=== PATIENT | female | born 1955 | race Caucasian/White ===

== ENCOUNTER 2016-06-19 15:00 | Emergency (ER) | payer MEDICAID ==
[~2016-06-19] VITALS: Ht 170.2 cm; Wt 72.6 kg
[2016-06-19 15:27] VITALS: BP_SYST 128
== END 2016-06-19 17:52 | disposition left against medical advice (07) ==
LOC: SED 15:00
DX: H92.02 Otalgia, left ear (principal); Z53.21 Procedure and treatment not carried out due to patient leaving prior to being seen by health care provider

== ENCOUNTER 2016-10-28 03:31 | Emergency (ER) | payer MEDICAID ==
[~2016-10-28] VITALS: Ht 170.2 cm; Wt 68.0 kg
[2016-10-28 03:31] VITALS: BP_SYST 151
[2016-10-28] MEDS ORDERED: NACL 0.9% 1,000 ML IV ONE (03:52)
[2016-10-28 04:24] LABS: HEMATOCRIT 45.2 % (36-48); HEMOGLOBIN 15.3 g/dL (12.0-16.0); MEAN CORPUSCULAR HEMOGLOBIN 30 pg (27-31); MEAN CORPUSCULAR HGB CONC 34 % (32-36); MEAN CORPUSCULAR VOLUME 89 fL (79.0-98.0); RED BLOOD CELL COUNT(AUTO) 5.07 MIL/uL (4.2-6.2); RED CELL DISTRIBUTION WIDTH 12.9 % (9.0-15.0)
[2016-10-28 04:25] LABS: BASOPHILS # (AUTO) 0.1 K/uL (0.0-0.2); BASOPHILS % (AUTO) 1.1 % (0.0-2.0); EOSINOPHILS # (AUTO) 0.1 K/uL (0.0-0.4); EOSINOPHILS % (AUTO) 2.3 % (0.0-4.0); LYMPHOCYTES # (AUTO) 1.5 K/uL (1.0-5.5); LYMPHOCYTES % (AUTO) 24.5 % (20.5-51.5); MONOCYTES # (AUTO) 0.8 K/uL (0.0-1.0); NEUTROPHILS # (AUTO) 3.5 K/uL (1.8-7.7); NEUTROPHILS % (AUTO) 59.1 % (40.0-70.0); PLATELET COUNT (AUTO) 157 K/uL (130-430)
[2016-10-28 04:41] LABS: CALCIUM 9.6 mg/dL (8.4-11.0); CREATININE 0.88 mg/dL (0.55-1.30); POTASSIUM 3.5 mmol/L (3.5-5.1)
[2016-10-28 04:48] LABS: ALBUMIN 4.3 g/dL (3.4-4.8); TOTAL BILIRUBIN 0.8 mg/dL (0.0-1.0)
[2016-10-28 05:58] LABS: BILIRUBIN,URINE NEGATIVE (NEGATIVE); BLOOD, URINE NEGATIVE (NEGATIVE); CLARITY/URINE CLEAR (CLEAR); COLOR,URINE YELLOW (YELLOW); GLUCOSE,URINE NEGATIVE (NEGATIVE); KETONES,URINE TRACE (NEGATIVE); LEUKOCYTE ESTERASE ,URINE NEGATIVE (NEGATIVE); NITRITE, URINE NEGATIVE (NEGATIVE); PH,URINE 5.5 (5.0-8.0); PROTEIN URINE NEGATIVE (NEGATIVE); UROBILINOGEN,URINE 0.2 (0.2-1.0)
[2016-10-28 08:08] VITALS: BP_SYST 160
== END 2016-10-28 07:35 | disposition home or self-care (01) ==
LOC: SED 03:31
DX: G62.9 Polyneuropathy, unspecified (principal); R51 Headache; Z88.6 Allergy status to analgesic agent; Z88.1 Allergy status to other antibiotic agents
CPT/HCPCS: 36415; 70450; 72131; 80053; 81003; 85025; 96360; 96361; 99285; J7030

== ENCOUNTER 2016-11-02 11:13 | Inpatient (IN) | payer MEDICAID ==
[~2016-11-02] VITALS: Ht 170.2 cm; Wt 73.9 kg
[2016-11-02] MEDS ORDERED: NACL 0.9% 1,000 ML IV ONE (11:15)
[2016-11-02 11:17] VITALS: BP_SYST 108
[2016-11-02 11:41] LABS: BASOPHILS # (AUTO) 0.2 K/uL (0.0-0.2); BASOPHILS % (AUTO) 3.6 % (0.0-2.0); EOSINOPHILS # (AUTO) 0.1 K/uL (0.0-0.4); EOSINOPHILS % (AUTO) 1.6 % (0.0-4.0); HEMATOCRIT 46.6 % (36-48); HEMOGLOBIN 15.3 g/dL (12.0-16.0); LYMPHOCYTES # (AUTO) 1.6 K/uL (1.0-5.5); LYMPHOCYTES % (AUTO) 25.3 % (20.5-51.5); MEAN CORPUSCULAR HEMOGLOBIN 30 pg (27-31); MEAN CORPUSCULAR HGB CONC 33 % (32-36); MEAN CORPUSCULAR VOLUME 91 fL (79.0-98.0); MONOCYTES # (AUTO) 0.7 K/uL (0.0-1.0); MONOCYTES % (AUTO) 11.6 % (1.7-9.3); NEUTROPHILS # (AUTO) 3.6 K/uL (1.8-7.7); NEUTROPHILS % (AUTO) 57.9 % (40.0-70.0); PLATELET COUNT (AUTO) 159 K/uL (130-430); RED BLOOD CELL COUNT(AUTO) 5.15 MIL/uL (4.2-6.2); RED CELL DISTRIBUTION WIDTH 12.6 % (9.0-15.0); WHITE BLOOD COUNT (AUTO) 6.2 K/uL (4.8-10.8)
[2016-11-02 11:50] LABS: ANION GAP 10 (5-15); CALCIUM 9.3 mg/dL (8.4-11.0); CHLORIDE 108 mmol/L (98-107); CREATININE 0.95 mg/dL (0.55-1.30); GFR AFRICAN AMERICAN 77 mL/min (>90); GLUCOSE 109 mg/dL (70-99); POTASSIUM 3.3 mmol/L (3.5-5.1); SODIUM SERUM 144 mmol/L (136-145); UREA NITROGEN, BLOOD 25 mg/dL (8-21)
[2016-11-02 12:06] LABS: TOTAL BILIRUBIN 0.5 mg/dL (0.0-1.0)
[2016-11-02 12:07] LABS: ALANINE AMINOTRANSFERASE 26 U/L (12-78); ALBUMIN 4.1 g/dL (3.4-4.8); ASPARTATE AMINOTRANSFERASE 17 U/L (10-37); THYROID STIMULATING HORMONE 0.89 uIu/mL (0.34-4.82)
[2016-11-02] MEDS ORDERED: POTASSIUM CHLORIDE 20 MEQ/PKT PACKET PO ONE (12:30)
[2016-11-02 13:11] LABS: BILIRUBIN,URINE NEGATIVE (NEGATIVE); BLOOD, URINE NEGATIVE (NEGATIVE); CLARITY/URINE CLEAR (CLEAR); COLOR,URINE YELLOW (YELLOW); GLUCOSE,URINE NEGATIVE (NEGATIVE); KETONES,URINE NEGATIVE (NEGATIVE); LEUKOCYTE ESTERASE ,URINE NEGATIVE (NEGATIVE); NITRITE, URINE NEGATIVE (NEGATIVE); PH,URINE 5.5 (5.0-8.0); PROTEIN URINE TRACE (NEGATIVE); UROBILINOGEN,URINE 0.2 (0.2-1.0)
[2016-11-02 13:50] LABS: BACTERIA,URINE FEW /HPF (None Seen); RBC,URINE 0-3 /HPF (0-3); WBC,URINE 0-3 /HPF (0-3)
[2016-11-02 13:51] LABS: MUCUS,URINE None Seen /LPF (None Seen)
[2016-11-02 13:52] LABS: OTHER CASTS, URINE WBC CASTS 1+ /LPF (None Seen)
[2016-11-02 16:18] VITALS: BP_SYST 143
[2016-11-02 18:21] VITALS: BP_SYST 143
[2016-11-02 20:05] VITALS: BP_SYST 125
[2016-11-03] MEDS: ACETAMINOPHEN 325 MG TABLET PO PRN ×2 (00:23→20:48)
[2016-11-03 00:44] VITALS: BP_SYST 132
[2016-11-03 06:05] VITALS: BP_SYST 107
[2016-11-03 07:55] LABS: BASOPHILS % (AUTO) 0.6 % (0.0-2.0); EOSINOPHILS # (AUTO) 0.2 K/uL (0.0-0.4); HEMATOCRIT 41.5 % (36-48); HEMOGLOBIN 14.1 g/dL (12.0-16.0); LYMPHOCYTES # (AUTO) 1.5 K/uL (1.0-5.5); LYMPHOCYTES % (AUTO) 30.2 % (20.5-51.5); MEAN CORPUSCULAR HEMOGLOBIN 31 pg (27-31); MEAN CORPUSCULAR HGB CONC 34 % (32-36); MEAN CORPUSCULAR VOLUME 91 fL (79.0-98.0); MONOCYTES # (AUTO) 0.5 K/uL (0.0-1.0); MONOCYTES % (AUTO) 10.1 % (1.7-9.3); NEUTROPHILS # (AUTO) 2.9 K/uL (1.8-7.7); NEUTROPHILS % (AUTO) 56.1 % (40.0-70.0); PLATELET COUNT (AUTO) 138 K/uL (130-430); RED BLOOD CELL COUNT(AUTO) 4.57 MIL/uL (4.2-6.2); RED CELL DISTRIBUTION WIDTH 12.3 % (9.0-15.0); WHITE BLOOD COUNT (AUTO) 5.1 K/uL (4.8-10.8)
[2016-11-03 08:22] LABS: ALBUMIN 3.4 g/dL (3.4-4.8); CALCIUM 8.7 mg/dL (8.4-11.0); CREATININE 0.68 mg/dL (0.55-1.30); FREE T4 (FREE THYROXINE) 0.8 ng/dL (0.6-1.6); POTASSIUM 3.3 mmol/L (3.5-5.1); THYROID STIMULATING HORMONE 0.73 uIu/mL (0.34-4.82); TOTAL BILIRUBIN 0.6 mg/dL (0.0-1.0)
[2016-11-03 09:02] LABS: ERYTHROCYTE SEDIMENTATION RATE 5 MM/HR (0-20)
[2016-11-03 12:00] VITALS: BP_SYST 134
[2016-11-03 16:00] VITALS: BP_SYST 130
[2016-11-03 20:00] VITALS: BP_SYST 135
[2016-11-04] VITALS (7 sets, daily range): BP systolic 132–141
[2016-11-04] MEDS: TEMAZEPAM 15 MG CAPSULE PO PRN ×2 (00:09→23:58)
[2016-11-04] MEDS: POTASSIUM CHLORIDE 20 MEQ TAB.PRT.SR PO SCH (20:56)
[2016-11-05] VITALS (7 sets, daily range): BP systolic 123–152
[2016-11-05 07:50] LABS: CALCIUM 8.9 mg/dL (8.4-11.0); CREATININE 0.81 mg/dL (0.55-1.30); POTASSIUM 3.4 mmol/L (3.5-5.1)
[2016-11-05] MEDS: POTASSIUM CHLORIDE 20 MEQ TAB.PRT.SR PO SCH ×2 (08:24→21:07)
[2016-11-06] VITALS: BP_SYST 152
[2016-11-06] MEDS: ACETAMINOPHEN 325 MG TABLET PO PRN ×3 (00:46→20:50)
[2016-11-06 04:00] VITALS: BP_SYST 129
[2016-11-06 05:09] LABS: FOLATE (FOLIC ACID) >20.0 ng/mL (>3.0)
[2016-11-06 08:00] VITALS: BP_SYST 133
[2016-11-06] MEDS: POTASSIUM CHLORIDE 20 MEQ TAB.PRT.SR PO SCH ×2 (08:47→20:49)
[2016-11-06 13:14] VITALS: BP_SYST 127
[2016-11-06 17:18] VITALS: BP_SYST 138
[2016-11-06 20:05] VITALS: BP_SYST 126
[2016-11-06] MEDS: CYANOCOBALAMIN 1000 mCg TABLET PO SCH (21:01)
[2016-11-06] MEDS: CHOLECALCIFEROL (VITAMIN D3) 2,000 UNIT TABLET PO SCH (21:01)
[2016-11-06] MEDS: MULTIVITS,CA,MINERALS/IRON/FA 1 TABLET PO SCH (21:01)
[2016-11-07 00:55] VITALS: BP_SYST 144
[2016-11-07] MEDS: ACETAMINOPHEN 325 MG TABLET PO PRN ×3 (02:52→22:05)
[2016-11-07 04:51] VITALS: BP_SYST 125
[2016-11-07 08:00] VITALS: BP_SYST 142
[2016-11-07] MEDS: CHOLECALCIFEROL (VITAMIN D3) 2,000 UNIT TABLET PO SCH (08:56)
[2016-11-07] MEDS: POTASSIUM CHLORIDE 20 MEQ TAB.PRT.SR PO SCH ×2 (08:57→20:59)
[2016-11-07] MEDS: MULTIVITS,CA,MINERALS/IRON/FA 1 TABLET PO SCH (08:57)
[2016-11-07] MEDS: CYANOCOBALAMIN 1000 mCg TABLET PO SCH (08:57)
[2016-11-07 19:00] VITALS: BP_SYST 158
[2016-11-07 20:00] VITALS: BP_SYST 158
[2016-11-08] VITALS (7 sets, daily range): BP systolic 122–159
[2016-11-08 07:58] LABS: CALCIUM 9.6 mg/dL (8.4-11.0); CREATININE 0.79 mg/dL (0.55-1.30); POTASSIUM 4.2 mmol/L (3.5-5.1)
[2016-11-08] MEDS: POTASSIUM CHLORIDE 20 MEQ TAB.PRT.SR PO SCH ×2 (08:46→21:02)
[2016-11-08] MEDS: MULTIVITS,CA,MINERALS/IRON/FA 1 TABLET PO SCH (08:47)
[2016-11-08] MEDS: CHOLECALCIFEROL (VITAMIN D3) 2,000 UNIT TABLET PO SCH (08:47)
[2016-11-08] MEDS: CYANOCOBALAMIN 1000 mCg TABLET PO SCH ×2 (08:47→18:51)
[2016-11-08] MEDS: ACETAMINOPHEN 325 MG TABLET PO PRN (08:47)
[2016-11-09 00:22] VITALS: BP_SYST 127
[2016-11-09] MEDS: ACETAMINOPHEN 325 MG TABLET PO PRN ×3 (00:33→21:34)
[2016-11-09 04:31] VITALS: BP_SYST 136
[2016-11-09 07:41] VITALS: BP_SYST 139
[2016-11-09] MEDS: CHOLECALCIFEROL (VITAMIN D3) 2,000 UNIT TABLET PO SCH (08:42)
[2016-11-09] MEDS: CYANOCOBALAMIN 1000 mCg TABLET PO SCH (08:42)
[2016-11-09] MEDS: MULTIVITS,CA,MINERALS/IRON/FA 1 TABLET PO SCH (08:42)
[2016-11-09] MEDS: POTASSIUM CHLORIDE 20 MEQ TAB.PRT.SR PO SCH (08:42)
[2016-11-09 12:00] VITALS: BP_SYST 117
[2016-11-09] MEDS ORDERED: MULT-33 PO (14:32)
[2016-11-09] MEDS ORDERED: CYAN100067 PO (14:32)
[2016-11-09] MEDS ORDERED: VITD2000 PO (14:32)
[2016-11-09 15:52] VITALS: BP_SYST 150
[2016-11-09 19:44] LABS: BILIRUBIN,URINE NEGATIVE (NEGATIVE); CLARITY/URINE HAZY (CLEAR); COLOR,URINE YELLOW (YELLOW); GLUCOSE,URINE TRACE (NEGATIVE); KETONES,URINE NEGATIVE (NEGATIVE); NITRITE, URINE POSITIVE (NEGATIVE); PROTEIN URINE NEGATIVE (NEGATIVE); UROBILINOGEN,URINE 0.2 (0.2-1.0)
[2016-11-09 19:57] LABS: BLOOD, URINE TRACE (NEGATIVE); LEUKOCYTE ESTERASE ,URINE TRACE (NEGATIVE)
[2016-11-09 19:59] LABS: BACTERIA,URINE MODERATE /HPF (None Seen); MUCUS,URINE None Seen /LPF (None Seen); RBC,URINE NONE SEEN /HPF (0-3)
[2016-11-09 20:00] VITALS: BP_SYST 141
[2016-11-10 00:13] VITALS: BP_SYST 124
[2016-11-10] MEDS: ACETAMINOPHEN 325 MG TABLET PO PRN ×2 (02:39→20:14)
[2016-11-10 04:40] VITALS: BP_SYST 132
[2016-11-10 08:00] VITALS: BP_SYST 129
[2016-11-10] MEDS: CYANOCOBALAMIN 1000 mCg TABLET PO SCH (08:23)
[2016-11-10] MEDS: MULTIVITS,CA,MINERALS/IRON/FA 1 TABLET PO SCH (08:23)
[2016-11-10] MEDS: CHOLECALCIFEROL (VITAMIN D3) 2,000 UNIT TABLET PO SCH (08:24)
[2016-11-10 11:53] VITALS: BP_SYST 113
[2016-11-10 16:13] VITALS: BP_SYST 140
[2016-11-10 20:00] VITALS: BP_SYST 122
[2016-11-11] VITALS: BP_SYST 124
[2016-11-11 04:00] VITALS: BP_SYST 137
[2016-11-11 08:00] VITALS: BP_SYST 144
[2016-11-11] MEDS: CHOLECALCIFEROL (VITAMIN D3) 2,000 UNIT TABLET PO SCH (08:19)
[2016-11-11] MEDS: MULTIVITS,CA,MINERALS/IRON/FA 1 TABLET PO SCH (08:20)
[2016-11-11] MEDS: CYANOCOBALAMIN 1000 mCg TABLET PO SCH (08:20)
[2016-11-11] MEDS: ACETAMINOPHEN 325 MG TABLET PO PRN (10:55)
[2016-11-11 12:30] VITALS: BP_SYST 137
[2016-11-11 16:09] VITALS: BP_SYST 128
[2016-11-11 20:00] VITALS: BP_SYST 126
[2016-11-12] MEDS: ACETAMINOPHEN 325 MG TABLET PO PRN ×3 (00:47→22:06)
[2016-11-12 00:49] VITALS: BP_SYST 120
[2016-11-12 04:39] VITALS: BP_SYST 132
[2016-11-12] MEDS: CYANOCOBALAMIN 1000 mCg TABLET PO SCH (10:30)
[2016-11-12] MEDS: CHOLECALCIFEROL (VITAMIN D3) 2,000 UNIT TABLET PO SCH (10:30)
[2016-11-12] MEDS: MULTIVITS,CA,MINERALS/IRON/FA 1 TABLET PO SCH (10:31)
[2016-11-12 12:34] VITALS: BP_SYST 131
[2016-11-12 16:25] VITALS: BP_SYST 143
[2016-11-12 20:10] VITALS: BP_SYST 127
[2016-11-13 00:23] VITALS: BP_SYST 121
[2016-11-13 04:17] VITALS: BP_SYST 116
[2016-11-13 08:00] VITALS: BP_SYST 133
[2016-11-13] MEDS: CYANOCOBALAMIN 1000 mCg TABLET PO SCH (10:06)
[2016-11-13] MEDS: MULTIVITS,CA,MINERALS/IRON/FA 1 TABLET PO SCH (10:06)
[2016-11-13] MEDS: CHOLECALCIFEROL (VITAMIN D3) 2,000 UNIT TABLET PO SCH (10:06)
[2016-11-13 12:33] VITALS: BP_SYST 137
[2016-11-13 18:11] VITALS: BP_SYST 131
== END 2016-11-13 19:00 | disposition home health service (06) | DRG 48 ==
LOC: SED 11:13 → SMU 15:38
PROVIDERS: ADMIT Internal Medicine; ATTEND Internal Medicine
DX: G62.9 Polyneuropathy, unspecified (principal); E87.1 Hypo-osmolality and hyponatremia; T42.6X5A Adverse effect of other antiepileptic and sedative-hypnotic drugs, initial encounter; F32.9 Major depressive disorder, single episode, unspecified; F79 Unspecified intellectual disabilities; I70.90 Unspecified atherosclerosis; K57.90 Diverticulosis of intestine, part unspecified, without perforation or abscess without bleeding; W18.30XA Fall on same level, unspecified, initial encounter; R33.9 Retention of urine, unspecified; R27.0 Ataxia, unspecified; M47.898 Other spondylosis, sacral and sacrococcygeal region; M48.07 Spinal stenosis, lumbosacral region; E87.6 Hypokalemia; Y92.89 Other specified places as the place of occurrence of the external cause; Y93.89 Activity, other specified; Y99.8 Other external cause status; Z88.1 Allergy status to other antibiotic agents; Z88.6 Allergy status to analgesic agent; Z79.899 Other long term (current) drug therapy
CPT/HCPCS: 36415; 72128; 72141; 72148; 76857; 80048; 80053; 81000-TC; 82607; 82746; 83735-TC; 84439; 84443-TC; 84484; 85025; 85651-TC; 87086; 87186-TC; 93005; 96360; 97110-GP; 97116-GP; 97530-GP; 99285; J7030

== ENCOUNTER 2021-10-03 14:31 | Inpatient (IN) | payer MEDICAID ==
[~2021-10-03] VITALS: Ht 170.2 cm; Wt 64.4 kg
[~2021-10-03 14:31] MED LIST: CYAN100010 PO; MULT-33 PO; VITD2000 PO
[2021-10-03 15:06] VITALS: BP_SYST 108
--- NOTE | 2021-10-03 15:14 | NUR ---
PT BIBA BY PAGEANT DIRECTOR WHO FOUNF HER AT HOME, PT LIVES IN [place], STATES SHE HAS NOT HAD ANY APPETITE OR HAD THE STRENGTH TO EAT OR DRINK. PT TEARFUL, STATES SHE NEEDS HER MOTHER. DENIES ANY CP OR SOB. SKIN WARM/DRY, MM-MOIST. UNABLE TO FIND CM AT THIS TIME. PT IN W/C IN [facility] ARE[facility], INFORMED TO LET STAFF KNOW IF SHE NEEDS ANYTHING.
[2021-10-03 17:24] LABS: WHITE BLOOD COUNT (AUTO) 12.3 K/uL (4.8-10.8)
[2021-10-03 17:45] LABS: HEMATOCRIT 41.9 % (36-48); HEMOGLOBIN 14.2 g/dL (12.0-16.0); MEAN CORPUSCULAR HEMOGLOBIN 28 pg (27-31); MEAN CORPUSCULAR HGB CONC 34 % (32-36); MEAN CORPUSCULAR VOLUME 81 fL (79.0-98.0); PLATELET COUNT (AUTO) 235 K/uL (130-430); RED BLOOD CELL COUNT(AUTO) 5.16 MIL/uL (4.2-6.2); RED CELL DISTRIBUTION WIDTH 13.5 % (9.0-15.0)
[2021-10-03 18:01] LABS: ALBUMIN 2.9 g/dL (3.4-4.8); CALCIUM 9.3 mg/dL (8.4-11.0); CREATININE 0.9 mg/dL (0.55-1.30); TOTAL BILIRUBIN 0.6 mg/dL (0.0-1.0)
[2021-10-03 19:11] LABS: POTASSIUM 3.2 mmol/L (3.5-5.1); THYROID STIMULATING HORMONE 1.32 uIu/mL (0.36-3.74)
[2021-10-03] MEDS ORDERED: LOPERAMIDE HCL 2 MG CAPSULE PO ONE (19:30)
[2021-10-03] MEDS ORDERED: POTASSIUM CHLORIDE 20 MEQ/PKT PACKET PO ONE (19:30)
[2021-10-03] MEDS ORDERED: NACL 0.9% 1,000 ML IV ONE ×2 (19:30→20:45)
[2021-10-03] MEDS ORDERED: MAG HYDROX/AL HYDROX/SIMETH 30 ML, LIDOCAINE VISCOUS 2% 15ML (PO) 15 ML, DICYCLOMINE HC... PO ONE ×3 (19:30)
[2021-10-03 19:48] LABS: BAND % (MANUAL) 5 % (0-6); EOSINOPHILS % (MANUAL) 0 % (0-7); LYMPHOCYTES % (MANUAL) 6 % (20-46); MONOCYTES % (MANUAL) 16 % (0-11)
[2021-10-03 19:49] LABS: BASOPHILS % (MANUAL) 0 % (0-2)
--- NOTE | 2021-10-03 20:29 | NUR ---
Patient to ER bed 04 to gown for evaluation. Side rails up.
[2021-10-03] MEDS ORDERED: PEPTO PO (21:23)
[2021-10-03] MEDS ORDERED: LOPE2CAP PO (21:23)
[2021-10-03] MEDS ORDERED: ONDA-8 TL (21:23)
[2021-10-03] MEDS ORDERED: INSULIN REGULAR, HUMAN 10 UNITS/0.1 ML INJ IVP ONE (22:15)
[2021-10-03] MEDS ORDERED: VANCOMYCIN HCL 1,000 MG in NS 250 ML IV ONE (22:30)
[2021-10-03] MEDS ORDERED: SULFAMETHOXAZOLE/TRIMETHOPR DS 1 TABLET PO ONE (22:30)
--- NOTE | 2021-10-03 22:36 | NUR ---
Deandre boyfriend [phone]
[2021-10-03] MEDS ORDERED: VANCOMYCIN HCL 1000 MG/VIAL IV ONE (22:51)
--- NOTE | 2021-10-03 23:51 | NUR ---
pt back from CT
--- NOTE | 2021-10-04 00:50 | NUR ---
admit orders given and carried out
--- NOTE | 2021-10-04 00:59 | NUR ---
Admit bed requested Patient will be admitted to care of . Admitted to TELEMETRY unit. Diagnosis UTI ELEVATED TROPONIN Inpatient (Yes or No) NO Observation (Yes or No) YES Orientation concerns or request close to nursing station (Yes or No) NO Covid Status NEGATIVE On vent or NO Isolation requirements NO Needs a sitter NO From Home (Yes or if No enter name of facility) YES Requires Dialysis (Yes or No) NO Med Rec Completed (Yes of No)
[2021-10-04] MEDS ORDERED: DIPHENHYDRAMINE INJ 50 MG/ML VIAL IVP ONE (02:15)
--- NOTE | 2021-10-04 02:22 | NUR ---
CONSULTATION PAGED/CALLED Reason for Consultation: abcess Person Who was Notified: Misti Consulting Physician: Farm Operations Technical Director Specialty: ID Ordering Physician: DR. BROWN
[2021-10-04] MEDS: NACL 0.9% 1,000 ML IV SCH ×3 (02:30→22:10)
[2021-10-04 05:00] VITALS: BP_SYST 129
[2021-10-04 06:26] LABS: BASOPHILS % (AUTO) 0.5 % (0.0-2.0); EOSINOPHILS # (AUTO) 0.1 K/uL (0.0-0.4); EOSINOPHILS % (AUTO) 1.6 % (0.0-4.0); HEMATOCRIT 33.3 % (36-48); HEMOGLOBIN 11.5 g/dL (12.0-16.0); LYMPHOCYTES % (AUTO) 20.3 % (20.5-51.5); MEAN CORPUSCULAR HEMOGLOBIN 28 pg (27-31); MEAN CORPUSCULAR HGB CONC 35 % (32-36); MEAN CORPUSCULAR VOLUME 81 fL (79.0-98.0); MONOCYTES # (AUTO) 0.7 K/uL (0.0-1.0); MONOCYTES % (AUTO) 14.8 % (1.7-9.3); NEUTROPHILS # (AUTO) 3.1 K/uL (1.8-7.7); NEUTROPHILS % (AUTO) 62.8 % (40.0-70.0); PLATELET COUNT (AUTO) 168 K/uL (130-430); RED BLOOD CELL COUNT(AUTO) 4.13 MIL/uL (4.2-6.2); RED CELL DISTRIBUTION WIDTH 13.4 % (9.0-15.0); WHITE BLOOD COUNT (AUTO) 4.9 K/uL (4.8-10.8)
[2021-10-04 07:48] LABS: CALCIUM 7.5 mg/dL (8.4-11.0); CREATININE 0.64 mg/dL (0.55-1.30); POTASSIUM 3.3 mmol/L (3.5-5.1)
[2021-10-04 08:00] VITALS: BP_SYST 122
[2021-10-04] MEDS ORDERED: ONDANSETRON HCL 4 MG/2 ML VIAL IVP PRN (09:45)
[2021-10-04] MEDS ORDERED: POTASSIUM CHLORIDE 20 MEQ/PKT PACKET PO ONE (09:45)
[2021-10-04 11:26] VITALS: BP_SYST 105
[2021-10-04 15:36] VITALS: BP_SYST 116
--- NOTE | 2021-10-04 16:29 | NUR ---
ACSW Mulu emailed admitting to update patient address [address], [place] [id number], and Next of Kin/Person to Notify daisy Rosario (sister)
[2021-10-04] MEDS: INSULIN REGULAR, HUMAN 100 UNITS/ML, 10 ML VIAL (humuLIN R) SUBCUT PRN ×2 (16:52→22:22)
[2021-10-04 20:18] VITALS: BP_SYST 101
--- NOTE | 2021-10-04 20:42 | NUR ---
RECEIVED PT LYING IN BED, NO DISTRESS NOTED, DENIES PAIN. AAOX4. IV TO LT HAND SITE CDI. ARA RECTAL ERYTHREMIC, ABSCESS WITH PURULENT DRAINAGE NOTED. CLEANED WITH NORMAL SALINE AND COVERED WITH GAUZE.
[2021-10-04] MEDS: FAMOTIDINE PF 20 MG/2 ML VIAL IVP SCH (21:00)
[2021-10-04] MEDS: ENOXAPARIN SODIUM 40 MG/0.4 ML SYRINGE SUBCUT SCH (22:09)
[2021-10-04] MEDS: CEFTAROLINE FOSAMIL ACETATE 600 MG in NS 250 ML IV SCH (22:11)
[2021-10-05] VITALS (7 sets, daily range): BP systolic 101–125
[2021-10-05] MEDS: INSULIN REGULAR, HUMAN 100 UNITS/ML, 10 ML VIAL (humuLIN R) SUBCUT PRN ×3 (06:04→17:05)
[2021-10-05 06:34] LABS: BASOPHILS % (AUTO) 0.5 % (0.0-2.0); EOSINOPHILS # (AUTO) 0.1 K/uL (0.0-0.4); EOSINOPHILS % (AUTO) 1.8 % (0.0-4.0); HEMATOCRIT 33.4 % (36-48); HEMOGLOBIN 11.7 g/dL (12.0-16.0); LYMPHOCYTES % (AUTO) 15.4 % (20.5-51.5); MEAN CORPUSCULAR HEMOGLOBIN 28 pg (27-31); MEAN CORPUSCULAR HGB CONC 35 % (32-36); MEAN CORPUSCULAR VOLUME 80 fL (79.0-98.0); MONOCYTES # (AUTO) 0.8 K/uL (0.0-1.0); MONOCYTES % (AUTO) 12.1 % (1.7-9.3); NEUTROPHILS # (AUTO) 4.6 K/uL (1.8-7.7); NEUTROPHILS % (AUTO) 70.2 % (40.0-70.0); PLATELET COUNT (AUTO) 167 K/uL (130-430); RED BLOOD CELL COUNT(AUTO) 4.16 MIL/uL (4.2-6.2); RED CELL DISTRIBUTION WIDTH 13.2 % (9.0-15.0); WHITE BLOOD COUNT (AUTO) 6.5 K/uL (4.8-10.8)
[2021-10-05 07:11] LABS: ALBUMIN 1.8 g/dL (3.4-4.8); CALCIUM 7.8 mg/dL (8.4-11.0); CREATININE 0.58 mg/dL (0.55-1.30); POTASSIUM 3.1 mmol/L (3.5-5.1); TOTAL BILIRUBIN 0.3 mg/dL (0.0-1.0)
--- NOTE | 2021-10-05 08:00 | NUR ---
RECEIVED IN BED ASSESSMENT COMPLETED PLAN OF CARE REVIEWED SURGERY AT BEDSIDE TO MAKE UP EDITOR PT CHECK LIST COMPLETED PT LEFT FOR I&D TO LEFT BUTTOCKS
[2021-10-05] MEDS ORDERED: ONDANSETRON HCL 4 MG/2 ML VIAL ONE (08:45)
[2021-10-05] MEDS ORDERED: NS 1000 ML IV.SOLN IV ONE (08:45)
[2021-10-05] MEDS ORDERED: POTASSIUM CHLORIDE 20 MEQ TAB.PRT.SR PO ONE (08:45)
[2021-10-05] MEDS ORDERED: KETOROLAC TROMETHAMINE 30 MG VIAL ONE (08:45)
[2021-10-05] MEDS ORDERED: POTASSIUM CHLORIDE 20 MEQ/PKT PACKET PO ONE (08:45)
[2021-10-05] MEDS ORDERED: PROPOFOL 200MG/ 20ML VIAL (DIPRIVAN) IV ONE (08:45)
[2021-10-05] MEDS ORDERED: SEVOFLURANE 15 MIN GAS INH ONE (08:45)
[2021-10-05] MEDS ORDERED: KCL 20 mEq in 100 mL (PREMIX) 200 ML IV ONE (09:00)
[2021-10-05] MEDS ORDERED: LACTOBACILLUS RHAMNOSUS GG 1 CAP CAPSULE PO SCH (09:00)
[2021-10-05] MEDS ORDERED: HYDROmorphone 1 MG/ML INJ. CARTRIDGE IVP PRN (09:45)
[2021-10-05] MEDS ORDERED: NALOXONE HCL 0.4 MG/ML AMP (NARCAN) IVP PRN (09:45)
[2021-10-05] MEDS ORDERED: ONDANSETRON HCL 4 MG/2 ML VIAL IVP PRN (09:45)
[2021-10-05] MEDS ORDERED: MORPHINE 4 MG INJ. 4 MG/ML VIAL IVP PRN (09:45)
[2021-10-05] MEDS ORDERED: MIDAZOLAM HCL 5 MG/5 ML VIAL IVP PRN (09:45)
--- NOTE | 2021-10-05 10:30 | NUR ---
PT RETURNED FROM SURGERY LEFT BUTTOKCS WITH GSUZED PACKED AND OPEN TO AIR PT ADVISED TO TURN SIDDE TO SIDE TO RELIEVE PRESSURE UNDERSTANDING VERBALIZED WILL CONTINUE TO MONITOR AND ASSESS
[2021-10-05] MEDS: CEFTAROLINE FOSAMIL ACETATE 600 MG in NS 250 ML IV SCH ×2 (11:35→22:04)
[2021-10-05] MEDS: FAMOTIDINE PF 20 MG/2 ML VIAL IVP SCH ×2 (11:37→21:56)
[2021-10-05] MEDS: LACTOBACILLUS RHAMNOSUS GG 1 CAP CAPSULE PO SCH (11:39)
--- NOTE | 2021-10-05 11:49 | NUR ---
DICE DEALER LATE ENTRY contact occured 10/04/2021 AMI Hardwick responded to a request for social service support from Fur Blower Operator Yesica. AMI Hardwick met with patient at bedside. Patient was awake, alert and orientedx4. ACSW completed introductions, reason for referral and provided business card. Patient was open to contact. Mental health- Patient discloses previous diagnosis of Schizoaffective Disorder and anxiety. Patient shares last auditory hallucination occuring about a month ago. Denies SI. She receives Mental Health Case Management Services from [facility]. She sees a psychiatrist once a month for medication management. Social- Patient resides alone in a senior apartments on the 2nd floor. She states she secured this apartment about a month ago and receiving Section 8 benefits to help with rent. She has a boyfriend Deandre , sister Marlene [place] , and [facility] Fur Blower Operator Malina who serve as her support system. ACSW and patient explored continuing to utilize support system. ACSW discussed the importance of individual therapy in addition to medication management with psychiatrist and encouraged patient to explore individual therapy options with [facility]. ACSW will continue to be available as needed
--- NOTE | 2021-10-05 12:49 | NUR ---
Discharge Planning: DCP faxed pt referral [facility] P#[phone] F#[phone]. DCP to follow up
[2021-10-05] MEDS: NACL 0.9% 1,000 ML IV SCH ×3 (13:01→22:13)
[2021-10-05] MEDS: ACETAMINOPHEN 325 MG TABLET PO PRN (14:17)
[2021-10-05] MEDS: metFORMIN HCL 500 MG TABLET PO SCH (17:03)
[2021-10-05 17:51] LABS: CALCIUM 7.6 mg/dL (8.4-11.0); CREATININE 0.83 mg/dL (0.55-1.30)
--- NOTE | 2021-10-05 19:00 | NUR ---
received resting in bed alert and oriented appears anxious .vitals done and updated ivf in progress
[2021-10-05] MEDS: ENOXAPARIN SODIUM 40 MG/0.4 ML SYRINGE SUBCUT SCH (21:44)
--- NOTE | 2021-10-06 | NUR ---
pt anxious .has pulled out the peripheral line and does not it re inserted.vitals are within normal range
--- NOTE | 2021-10-06 00:19 | NUR ---
PAGED PAGED DOCTOR BROWN FOR ORDERS
--- NOTE | 2021-10-06 01:01 | NUR ---
2ND PAGE PAGE DOCTOR STEPHANIE FOR ORDERS
[2021-10-06 01:17] VITALS: BP_SYST 161
--- NOTE | 2021-10-06 01:39 | NUR ---
3RD PAGE PAGE AGAIN FOR ORDERS STILL NO CALL BACK
[2021-10-06] MEDS: NACL 0.9% 1,000 ML IV SCH ×3 (05:41→21:42)
[2021-10-06] MEDS: INSULIN REGULAR, HUMAN 100 UNITS/ML, 10 ML VIAL (humuLIN R) SUBCUT PRN ×3 (06:44→18:11)
[2021-10-06 07:20] LABS: ALBUMIN 1.9 g/dL (3.4-4.8); CALCIUM 7.9 mg/dL (8.4-11.0); CREATININE 0.67 mg/dL (0.55-1.30); POTASSIUM 3.8 mmol/L (3.5-5.1); TOTAL BILIRUBIN 0.2 mg/dL (0.0-1.0)
--- NOTE | 2021-10-06 08:00 | NUR ---
RECEIVED PT IN BED ASSESSMENT COMPLETED NO IV ACCESS PLAN OF CARE REVIEWED IV RESTARTED AT RIGHT HAND GAUGE 22 WILL CONTINUE TO MONITOR AND ASSESS
[2021-10-06] MEDS: FAMOTIDINE PF 20 MG/2 ML VIAL IVP SCH ×2 (09:44→21:38)
[2021-10-06] MEDS: CEFTAROLINE FOSAMIL ACETATE 600 MG in NS 250 ML IV SCH ×2 (09:44→21:23)
[2021-10-06] MEDS: metFORMIN HCL 500 MG TABLET PO SCH ×2 (09:45→18:08)
[2021-10-06] MEDS: LACTOBACILLUS RHAMNOSUS GG 1 CAP CAPSULE PO SCH (09:45)
[2021-10-06 11:27] VITALS: BP_SYST 132
--- NOTE | 2021-10-06 11:30 | NUR ---
Discharge Planning: DCP faxed pt referral to [facility] P#[phone] Renan, home health accepting pt is [facility] [phone]. Disposition 06
[2021-10-06] MEDS: FLUCONAZOLE 200 mg/ NS 100 ML IV SCH (11:50)
[2021-10-06] MEDS ORDERED: traZODone HCL 50 MG TABLET (DESYREL) PO PRN (14:00)
[2021-10-06] MEDS ORDERED: SERTRALINE HCL 50 MG TABLET PO ONE (14:00)
--- NOTE | 2021-10-06 14:05 | NUR ---
PT HAD AN EPISODE OF YELLING AND SREAMING WITH ANXIETY NOTED PER PT SHE TAKES ZOLOFT 50M 2 TABS DAILY AND TRAZADONE 100MG QHS MD CALLED AND MADE AWARE WITH NEW ORDERS NOTED AND CARRIED OUT TO RESTART MEDICAITONS PT SISTER AT BEDSIDE AND ABLE TO KEEP TO KEEP PT CALM AT THIS TIME AWAITING PHARNMACY TO APPROVE MEDICAITONS WILL CONTINUE TO MONITOR AND ASSESS
[2021-10-06 15:43] VITALS: BP_SYST 139
--- NOTE | 2021-10-06 18:46 | NUR ---
PT PULLED OUT IV AND ENDORSES SHE DOES NOT WANT IT RISK AND BNEFITS EXPLAINED PT AGREED TO IV 24 GAUGE STARTED AT RIGHT HAND ALL NEEDS ANTICIPATED AND MET
[2021-10-06 19:00] VITALS: BP_SYST 127
--- NOTE | 2021-10-06 19:30 | NUR ---
received patients report lying in bed awake and oriented to self. she has infusions running through a peripheral line .vitals done are within normal range
[2021-10-06 20:00] VITALS: BP_SYST 127
[2021-10-06] MEDS: ENOXAPARIN SODIUM 40 MG/0.4 ML SYRINGE SUBCUT SCH (21:24)
--- NOTE | 2021-10-06 22:00 | NUR ---
patients medicated .vitals done patients seems upset late calmed down after some talk
[2021-10-07 01:02] VITALS: BP_SYST 141
--- NOTE | 2021-10-07 04:00 | NUR ---
pt has pulled out the iv line and states she does not want it replaced
[2021-10-07] MEDS: NACL 0.9% 1,000 ML IV SCH ×2 (06:41→15:01)
[2021-10-07 07:45] LABS: BASOPHILS % (AUTO) 0.5 % (0.0-2.0); EOSINOPHILS # (AUTO) 0.1 K/uL (0.0-0.4); EOSINOPHILS % (AUTO) 3.1 % (0.0-4.0); HEMATOCRIT 36.6 % (36-48); HEMOGLOBIN 12.7 g/dL (12.0-16.0); LYMPHOCYTES % (AUTO) 21.4 % (20.5-51.5); MEAN CORPUSCULAR HEMOGLOBIN 28 pg (27-31); MEAN CORPUSCULAR HGB CONC 35 % (32-36); MEAN CORPUSCULAR VOLUME 81 fL (79.0-98.0); MONOCYTES # (AUTO) 0.6 K/uL (0.0-1.0); MONOCYTES % (AUTO) 13.4 % (1.7-9.3); NEUTROPHILS # (AUTO) 2.9 K/uL (1.8-7.7); NEUTROPHILS % (AUTO) 61.6 % (40.0-70.0); PLATELET COUNT (AUTO) 185 K/uL (130-430); RED BLOOD CELL COUNT(AUTO) 4.54 MIL/uL (4.2-6.2); RED CELL DISTRIBUTION WIDTH 13.6 % (9.0-15.0); WHITE BLOOD COUNT (AUTO) 4.7 K/uL (4.8-10.8)
[2021-10-07 08:00] VITALS: BP_SYST 127; BP_SYST 152
[2021-10-07] MEDS: metFORMIN HCL 500 MG TABLET PO SCH ×2 (08:00→17:43)
[2021-10-07 08:03] LABS: C-REACTIVE PROTEIN QUANT 3.4 mg/dL (0-0.5); CREATININE 0.62 mg/dL (0.55-1.30); POTASSIUM 3.3 mmol/L (3.5-5.1)
[2021-10-07] MEDS: FAMOTIDINE PF 20 MG/2 ML VIAL IVP SCH ×2 (09:00→22:08)
[2021-10-07] MEDS: LACTOBACILLUS RHAMNOSUS GG 1 CAP CAPSULE PO SCH (09:39)
[2021-10-07] MEDS: SERTRALINE HCL 50 MG TABLET PO SCH (09:40)
[2021-10-07] MEDS: ACETAMINOPHEN 325 MG TABLET PO PRN (09:47)
[2021-10-07 11:35] VITALS: BP_SYST 121
[2021-10-07] MEDS ORDERED: POTASSIUM CHLORIDE 20 MEQ TAB.PRT.SR PO ONE (12:15)
[2021-10-07] MEDS: INSULIN REGULAR, HUMAN 100 UNITS/ML, 10 ML VIAL (humuLIN R) SUBCUT PRN ×3 (13:15→22:10)
[2021-10-07 13:50] LABS: ERYTHROCYTE SEDIMENTATION RATE 40 MM/HR (0-20)
[2021-10-07] MEDS: CEFTAROLINE FOSAMIL ACETATE 600 MG in NS 250 ML IV SCH ×2 (14:33→22:06)
[2021-10-07 15:57] VITALS: BP_SYST 130
--- NOTE | 2021-10-07 15:57 | NUR ---
PT AGREED TO HAVE IV REPLACED. IV RESTARTED VIA HOUSE SUPV. WITH ATTEMPT X 1- 22 G PLACED TO RT ARM. IV ABX RESUMED PER ORDERED. PT TOLERATED PROCEDURE WITHOUT NOTED PROBLEMS. WILL CONTINUE TO MONITOR.
[2021-10-07] MEDS: FLUCONAZOLE 200 mg/ NS 100 ML IV SCH (16:51)
--- NOTE | 2021-10-07 18:36 | NUR ---
PT HAS HAD AN UNEVENTFUL SHIFT. RESPIRATIONS EVEN ET UNLABORED. NO S/ ACUTE DISTRESS NOTED.
--- NOTE | 2021-10-07 19:25 | NUR ---
Opening note Received patient awake, resting in bed. No distress and nonlabored breathing on room air. IVF infusing via IV to rt hand. Bed is locked in lowest position, side rails up, bed alarm on and call light w/in reach.
[2021-10-07 20:40] VITALS: BP_SYST 132
[2021-10-07] MEDS: ENOXAPARIN SODIUM 40 MG/0.4 ML SYRINGE SUBCUT SCH (22:07)
--- NOTE | 2021-10-07 22:09 | NUR ---
Meds scheduled meds given. Reviewed side effects of Teflaro, she verbalize understanding; IV infusing well and tolerating. Fingerstick accucheck done and covered with regular insulin per sliding scale, no further needs.
[2021-10-08 00:10] VITALS: BP_SYST 130
--- NOTE | 2021-10-08 05:15 | NUR ---
wound care, pericare Patient soiled and she was provided with pericare. She had soft formed brown stool and it was collected; will send to lab. Wound care done; cleansed with normal saline, packed with iodoform, covered with soft foam dressing.
[2021-10-08] MEDS: NACL 0.9% 1,000 ML IV SCH ×3 (05:24→16:01)
[2021-10-08] MEDS: INSULIN REGULAR, HUMAN 100 UNITS/ML, 10 ML VIAL (humuLIN R) SUBCUT PRN ×3 (06:30→21:42)
[2021-10-08 06:37] LABS: BASOPHILS % (AUTO) 0.9 % (0.0-2.0); EOSINOPHILS # (AUTO) 0.2 K/uL (0.0-0.4); EOSINOPHILS % (AUTO) 4.2 % (0.0-4.0); HEMATOCRIT 35.6 % (36-48); HEMOGLOBIN 12.3 g/dL (12.0-16.0); LYMPHOCYTES # (AUTO) 1.2 K/uL (1.0-5.5); LYMPHOCYTES % (AUTO) 31.3 % (20.5-51.5); MEAN CORPUSCULAR HEMOGLOBIN 28 pg (27-31); MEAN CORPUSCULAR HGB CONC 35 % (32-36); MEAN CORPUSCULAR VOLUME 81 fL (79.0-98.0); MONOCYTES # (AUTO) 0.6 K/uL (0.0-1.0); NEUTROPHILS # (AUTO) 1.9 K/uL (1.8-7.7); NEUTROPHILS % (AUTO) 48.6 % (40.0-70.0); PLATELET COUNT (AUTO) 169 K/uL (130-430); RED BLOOD CELL COUNT(AUTO) 4.41 MIL/uL (4.2-6.2); RED CELL DISTRIBUTION WIDTH 13.4 % (9.0-15.0)
[2021-10-08 06:57] LABS: C-REACTIVE PROTEIN QUANT 1.6 mg/dL (0-0.5); CALCIUM 8.1 mg/dL (8.4-11.0); CREATININE 0.65 mg/dL (0.55-1.30); POTASSIUM 3.6 mmol/L (3.5-5.1)
[2021-10-08 08:00] VITALS: BP_SYST 136
[2021-10-08 08:34] VITALS: BP_SYST 130
[2021-10-08] MEDS: LACTOBACILLUS RHAMNOSUS GG 1 CAP CAPSULE PO SCH (08:56)
[2021-10-08] MEDS: SERTRALINE HCL 50 MG TABLET PO SCH (08:56)
[2021-10-08] MEDS: metFORMIN HCL 500 MG TABLET PO SCH ×2 (08:57→18:00)
[2021-10-08] MEDS: CEFTAROLINE FOSAMIL ACETATE 600 MG in NS 250 ML IV SCH ×2 (08:57→21:44)
[2021-10-08] MEDS: FAMOTIDINE PF 20 MG/2 ML VIAL IVP SCH ×2 (11:22→21:43)
[2021-10-08 12:41] LABS: ERYTHROCYTE SEDIMENTATION RATE 37 MM/HR (0-20)
[2021-10-08] MEDS: ACETAMINOPHEN 325 MG TABLET PO PRN (14:19)
[2021-10-08] MEDS: FLUCONAZOLE 200 mg/ NS 100 ML IV SCH (15:34)
[2021-10-08 16:00] VITALS: BP_SYST 143
--- NOTE | 2021-10-08 18:30 | NUR ---
QUIET HOURS NOTED THROUGHOUT THE SHIFT. PT CONTINUES ON IV ANTIBIOTICS PER ORDERED. PERICARE RENDERED NEEDED AFTER EACH INCONTINENCE EPISODE. PT HAS BEEN CALM AND COMPLIANT WITH NURSING CARE INITIATED. SHE HAS BEEN SLEEPING AT INTERVALS THROUGHOUT THE SHIFT. C/O INCREASED WORRY REGARDING GOING HOME. STATED THAT SHE LIVES ON 2ND FLOOR. LIVES ALONE AND THE APT HAS NO ELEVATORS. SHE STATED THAT SHE DISCUSSED THIS ISSUE WITH THE DOCTOR. I DISCUSSED RELAXATION TECHNIQUES WITH PT AND OTHER MEASURES TO DECREASE ANXIETY. NO CHANGE IN CONDITION NOTED
--- NOTE | 2021-10-08 19:35 | NUR ---
Opening note Received patient awake, resting in bed. No distress and nonlabored breathing on room air. IV to rt hand is SL. Bed is locked in lowest position, side rails up, bed alarm on and call light w/in reach. She reports neighbor has too many visitors she can't get rest and would like sleeping pill tonight.
[2021-10-08 20:00] VITALS: BP_SYST 136
--- NOTE | 2021-10-08 20:26 | NUR ---
endorsed care SBAR report given to RAMESH House
[2021-10-08] MEDS: ENOXAPARIN SODIUM 40 MG/0.4 ML SYRINGE SUBCUT SCH (21:38)
[2021-10-09 00:10] VITALS: BP_SYST 121
[2021-10-09] MEDS: NACL 0.9% 1,000 ML IV SCH ×2 (00:21→10:40)
[2021-10-09] MEDS: INSULIN REGULAR, HUMAN 100 UNITS/ML, 10 ML VIAL (humuLIN R) SUBCUT PRN ×2 (06:42→12:37)
[2021-10-09 06:49] LABS: BASOPHILS % (AUTO) 0.9 % (0.0-2.0); EOSINOPHILS # (AUTO) 0.1 K/uL (0.0-0.4); HEMATOCRIT 33.8 % (36-48); HEMOGLOBIN 11.6 g/dL (12.0-16.0); LYMPHOCYTES # (AUTO) 1.3 K/uL (1.0-5.5); LYMPHOCYTES % (AUTO) 34.8 % (20.5-51.5); MEAN CORPUSCULAR HEMOGLOBIN 28 pg (27-31); MEAN CORPUSCULAR HGB CONC 34 % (32-36); MEAN CORPUSCULAR VOLUME 81 fL (79.0-98.0); MONOCYTES # (AUTO) 0.5 K/uL (0.0-1.0); MONOCYTES % (AUTO) 15.2 % (1.7-9.3); NEUTROPHILS # (AUTO) 1.6 K/uL (1.8-7.7); NEUTROPHILS % (AUTO) 45.1 % (40.0-70.0); PLATELET COUNT (AUTO) 164 K/uL (130-430); RED BLOOD CELL COUNT(AUTO) 4.16 MIL/uL (4.2-6.2); RED CELL DISTRIBUTION WIDTH 13.6 % (9.0-15.0); WHITE BLOOD COUNT (AUTO) 3.6 K/uL (4.8-10.8)
[2021-10-09 07:10] LABS: ALBUMIN 2.1 g/dL (3.4-4.8); CALCIUM 8.1 mg/dL (8.4-11.0); CREATININE 0.8 mg/dL (0.55-1.30); POTASSIUM 3.5 mmol/L (3.5-5.1); TOTAL BILIRUBIN 0.2 mg/dL (0.0-1.0)
--- NOTE | 2021-10-09 07:35 | NUR ---
Closing Patient AOx4, resting in bed, unlabored breathing on room air. No complaint of pain. Incontinence care provided, linens changed. Wound care provided, dressing changed. Blood sugar 175 this morning. Call light in reach, fall and safety precautions in place.
[2021-10-09 08:00] VITALS: BP_SYST 110
[2021-10-09 09:14] LABS: ERYTHROCYTE SEDIMENTATION RATE 23 MM/HR (0-20)
[2021-10-09] MEDS: SERTRALINE HCL 50 MG TABLET PO SCH (10:39)
[2021-10-09] MEDS: metFORMIN HCL 500 MG TABLET PO SCH (10:39)
[2021-10-09] MEDS: CEFTAROLINE FOSAMIL ACETATE 600 MG in NS 250 ML IV SCH (10:39)
[2021-10-09] MEDS: LACTOBACILLUS RHAMNOSUS GG 1 CAP CAPSULE PO SCH (10:39)
[2021-10-09] MEDS: FAMOTIDINE PF 20 MG/2 ML VIAL IVP SCH (10:39)
[2021-10-09] MEDS ORDERED: METF-379 PO (11:09)
[2021-10-09] MEDS ORDERED: FLUC200T PO (11:09)
[2021-10-09] MEDS ORDERED: SERT-436 PO (11:09)
[2021-10-09] MEDS ORDERED: LACT1CAP57 PO (11:09)
[2021-10-09] MEDS ORDERED: LEVO500T90 PO (11:09)
[2021-10-09] MEDS ORDERED: TRAZ-250 PO (11:09)
[2021-10-09 11:26] VITALS: BP_SYST 113
[2021-10-09 15:07] VITALS: BP_SYST 110
--- NOTE | 2021-10-09 15:45 | NUR ---
Miss Gordon has been assessed as indicted. She is being DC to home at this time. Her sister Marlene is at the bedside at this time. IV access has been removed. the surgical site on her buttock has been changed. DC instructions have been reviewed with Miss Gordon as well as her sister. She expressed that she understood and signed a document to attest to this fact. An appointment was was made for her to follow up with Dr. Deshpande on 10/16/21 at 4pm in the [place] office. She has been provided with this information as well as the office address and telephone number. She will receive wound care with [facility]. she was made aware of this also. At the time of DC Miss Gordon was compliant with the plan to DC home. At the time of departure she had no s/s of distress or discomfort. She was escorted to the front door via WC by staff there her boyfriend awaited her arrival and her sister drove her home in a private vehicle
[2021-10-09] MEDS ORDERED: DOXYCYCLINE HYCLATE 100 MG CAPSULE PO SCH (21:00)
== END 2021-10-09 17:57 | disposition home health service (06) | DRG 710 ==
LOC: SED 14:31 → OBSVTOIN 10-04 00:59 → STU 10-04 00:59 → SMU 10-04 16:59
PROVIDERS: ADMIT Preventive Medicine Preventive Medicine/Occupational Environmental Medicine; ATTEND Internal Medicine
PROC: 0D9Q0ZZ Drainage of Anus, Open Approach (ICD-10-PCS; principal; 2021-10-05 09:09)
DX: A41.9 Sepsis, unspecified organism (principal); E11.10 Type 2 diabetes mellitus with ketoacidosis without coma; E44.0 Moderate protein-calorie malnutrition; F25.9 Schizoaffective disorder, unspecified; K61.0 Anal abscess; L02.31 Cutaneous abscess of buttock; K61.1 Rectal abscess; E66.9 Obesity, unspecified; K52.9 Noninfective gastroenteritis and colitis, unspecified; F32.A Depression, unspecified; M19.90 Unspecified osteoarthritis, unspecified site; E87.6 Hypokalemia; Z20.822 Contact with and (suspected) exposure to COVID-19; Z88.8 Allergy status to other drugs, medicaments and biological substances; Z79.899 Other long term (current) drug therapy; Z68.22 Body mass index [BMI] 22.0-22.9, adult; E87.1 Hypo-osmolality and hyponatremia
CPT/HCPCS: 36415; 36600; 76376; 80048; 80053; 82009; 82803-TC; 82948; 82962; 83036; 83605; 83690; 83735; 84443; 85007; 85025; 85027; 85651-TC; 86140; 87040; 87045-TC; 87046; 87070; 87070-TC; 87075-TC; 87081; 87230-TC; 93005; J0712; J1200; J1450; J1650; J1815; J1885; J1956; J2001; J2405; J2704; J3370; J3480; J3490; J7030; J7050; Q9967

== ENCOUNTER 2021-12-12 08:45 | Inpatient (IN) | payer MEDICAID ==
[~2021-12-12] VITALS: Ht 170.2 cm; Wt 66.8 kg
[~2021-12-12 08:45] MED LIST changes: +FLUC200T PO; +LACT1CAP57 PO; +LEVO-62 PO; +LOPE2CAP PO; +METF-379 PO; +ONDA-8 TL; +PEPTO PO; +SERT-436 PO; +TRAZ-250 PO
[2021-12-12 08:50] VITALS: BP_SYST 135
--- NOTE | 2021-12-12 09:00 | NUR ---
Placed in room 3 . Placed on cardiac monitor technician, blood pressure machine and pulse oximeter. To gown for exam. Side rails up. Report given to RAMESH PARKS.
--- NOTE | 2021-12-12 09:02 | NUR ---
PT CAME IN FROM HOME C/O "THROWING UP BRIGHT RED BLOOD" 5-6 TIMES LAST NIGHT STARTING AROUND 1999. STATES SHE IS HAVING MID ABD PAIN. PT ARRIVES STATING SHE IS STILL NAUSEOUS. PT IS AMBUALATORY, AAOX4, VSS
[2021-12-12] MEDS ORDERED: ONDANSETRON HCL 4 MG/2 ML VIAL IVP ONE (09:45)
[2021-12-12] MEDS ORDERED: PANTOPRAZOLE SODIUM 40 MG/VIAL (PROTONIX) IVP ONE (09:45)
[2021-12-12] MEDS ORDERED: MORPHINE 4 MG INJ. 4 MG/ML VIAL IVP ONE (09:45)
[2021-12-12 10:11] LABS: BASOPHILS % (AUTO) 0.6 % (0.0-2.0); EOSINOPHILS % (AUTO) 0.2 % (0.0-4.0); HEMATOCRIT 41.8 % (36-48); LYMPHOCYTES # (AUTO) 0.7 K/uL (1.0-5.5); LYMPHOCYTES % (AUTO) 8.6 % (20.5-51.5); MEAN CORPUSCULAR VOLUME 84 fL (79.0-98.0); MONOCYTES # (AUTO) 0.5 K/uL (0.0-1.0); MONOCYTES % (AUTO) 7.1 % (1.7-9.3); NEUTROPHILS # (AUTO) 6.4 K/uL (1.8-7.7); NEUTROPHILS % (AUTO) 83.5 % (40.0-70.0); PLATELET COUNT (AUTO) 130 K/uL (130-430); RED BLOOD CELL COUNT(AUTO) 5.01 MIL/uL (4.2-6.2); RED CELL DISTRIBUTION WIDTH 14.8 % (9.0-15.0); WHITE BLOOD COUNT (AUTO) 7.6 K/uL (4.8-10.8)
[2021-12-12 10:36] LABS: ANION GAP 8 (5-15); CHLORIDE 101 mmol/L (98-107); CREATININE 1.09 mg/dL (0.55-1.30); GLUCOSE 368 mg/dL (70-99); POTASSIUM 4.5 mmol/L (3.5-5.1); UREA NITROGEN, BLOOD 20 mg/dL (8-21)
[2021-12-12 10:44] LABS: ALANINE AMINOTRANSFERASE 14 U/L (12-78); ALBUMIN 3.8 g/dL (3.4-4.8); ASPARTATE AMINOTRANSFERASE 15 U/L (10-37); TOTAL BILIRUBIN 0.6 mg/dL (0.0-1.0)
[2021-12-12] MEDS ORDERED: NACL 0.9% 1,000 ML IV ONE (10:45)
--- NOTE | 2021-12-12 10:45 | NUR ---
# 22 gauge angiocath placed to RAC. Use of asceptic technique. Opsite placed over site. Blood return noted. Blood for lab drawn from site. Flushed with 10 cc of normal saline. No evidence of infiltration noted. Patient tolerated well.
[2021-12-12 10:53] LABS: GFR AFRICAN AMERICAN 65 mL/min (>90)
[2021-12-12 10:55] LABS: CALCIUM 9.6 mg/dL (8.4-11.0)
[2021-12-12 11:33] LABS: PROTHROMBIN TIME 10.5 SECS (9.5-12.5)
--- NOTE | 2021-12-12 13:41 | NUR ---
Admit bed requested Patient will be admitted to care of Dr. STEWART. Admitted to TELE unit. Diagnosis GI BLEED Inpatient (Yes or No) Y Observation (Yes or No) N Orientation concerns or request close to nursing station (Yes or No) N Covid Status PENDING On vent or bipap N Isolation requirements N Needs a sitter N From Home (Yes or if No enter name of facility) Y Requires Dialysis (Yes or No) N Med Rec Completed (Yes of No) Y
[2021-12-12] MEDS ORDERED: traZODone HCL 50 MG TABLET (DESYREL) PO PRN (16:45)
[2021-12-12] MEDS ORDERED: DEXTROSE 50% JECT 50 ML DISP.SYRIN IVP PRN (16:45)
--- NOTE | 2021-12-12 16:57 | NUR ---
PT WITH EYES CLOSED, IN NAD. RESP EVEN AND UNLABORED, ON RA @97%.
--- NOTE | 2021-12-12 17:33 | NUR ---
PT WITH NAUSEA/VOMITTED MOD AMOUNT OF CLEAR FLUID, ATTEMPTED TO MEDICATE WITH ZOFRAN BUT IV NO LONGER PATENT. NATO DENG INFORMED TO ASSIST WITH IV ACCESS.
[2021-12-12] MEDS: ONDANSETRON HCL 4 MG/2 ML VIAL IVP PRN (18:01)
[2021-12-12] MEDS: D5LR 1,000 ML IV SCH (18:02)
--- NOTE | 2021-12-12 18:20 | NUR ---
PT REPORTS FEELIGN BETTER, REFUSES MEAL DINNER TRAY AT BEDSIDE. VSS
[2021-12-12 18:24] LABS: BASOPHILS # (AUTO) 0.1 K/uL (0.0-0.2); BASOPHILS % (AUTO) 0.7 % (0.0-2.0); EOSINOPHILS % (AUTO) 0.3 % (0.0-4.0); HEMATOCRIT 42.5 % (36-48); LYMPHOCYTES # (AUTO) 0.7 K/uL (1.0-5.5); LYMPHOCYTES % (AUTO) 8.8 % (20.5-51.5); MEAN CORPUSCULAR VOLUME 85 fL (79.0-98.0); MONOCYTES # (AUTO) 0.7 K/uL (0.0-1.0); MONOCYTES % (AUTO) 7.9 % (1.7-9.3); NEUTROPHILS # (AUTO) 6.7 K/uL (1.8-7.7); NEUTROPHILS % (AUTO) 82.3 % (40.0-70.0); PLATELET COUNT (AUTO) 122 K/uL (130-430); RED BLOOD CELL COUNT(AUTO) 5.03 MIL/uL (4.2-6.2); RED CELL DISTRIBUTION WIDTH 14.8 % (9.0-15.0); WHITE BLOOD COUNT (AUTO) 8.2 K/uL (4.8-10.8)
--- NOTE | 2021-12-12 19:47 | NUR ---
Pt A&O x3, pt states having some over al discomfort. VSS. Safety precautions in place and connected to monitor.
--- NOTE | 2021-12-12 22:19 | NUR ---
ADMIT NOTE Received pt from ER with a diagnosis of GI Bleed. Received SBAR report from RAMESH Rivera. Patient ambulated from gurney to restroom, then to bed. Admission process initiated, she was in street clothes and was provided with gown, telemonitor was connected and V/S taken. Patient oriented to pain management, safety and call light-teach back done. She was provided with bedside commode.
--- NOTE | 2021-12-12 22:20 | NUR ---
Patient will be admitted to care of Dr. Breaux. Admitted to telemetry unit. Will go to room 116B. Belongings list completed. Complete and up to date summary report printed. SBAR report given to Angela CHANDLER at bedside with opportunity for questions.
[2021-12-12 22:30] VITALS: BP_SYST 118
[2021-12-12] MEDS: INSULIN REGULAR, HUMAN 100 UNITS/ML, 3 ML VIAL (humuLIN R) SUBCUT PRN (23:45)
[2021-12-13 00:46] VITALS: BP_SYST 119
[2021-12-13] MEDS ORDERED: PANTOPRAZOLE SODIUM 40 MG/VIAL (PROTONIX) ONE ×3 (01:00→21:51)
[2021-12-13] MEDS: PANTOPRAZOLE SODIUM 40 MG in NS 50 ML IV SCH ×6 (01:09→22:50)
--- NOTE | 2021-12-13 03:50 | NUR ---
BM Patient called and reported a bowel movement, it was loose with particles, light brown. Patient did not get up for use of bedside commode / incontinent episode. She was provided with pericare and clean pad, linen. wctm.
[2021-12-13] MEDS: INSULIN REGULAR, HUMAN 100 UNITS/ML, 3 ML VIAL (humuLIN R) SUBCUT PRN ×4 (06:21→22:46)
[2021-12-13] MEDS: D5LR 1,000 ML IV SCH (06:26)
--- NOTE | 2021-12-13 06:40 | NUR ---
jacqueline, BS Hung new bag of IVF as ordered, administered Protonix IV at 10 ml/hr as ordered. IV is patent, no s/sx of infiltration. Blood sugar result is 234 mg/dL and covered per sliding scale.
--- NOTE | 2021-12-13 07:33 | NUR ---
Dr. Breaux s/w Dr. Breaux and notified of patient's loose stool. Received orders to collect stool samples and medication orders; TORB
[2021-12-13 07:41] LABS: BASOPHILS % (AUTO) 0.6 % (0.0-2.0); EOSINOPHILS # (AUTO) 0.1 K/uL (0.0-0.4); EOSINOPHILS % (AUTO) 2.3 % (0.0-4.0); HEMATOCRIT 39.4 % (36-48); LYMPHOCYTES # (AUTO) 1.1 K/uL (1.0-5.5); LYMPHOCYTES % (AUTO) 18.7 % (20.5-51.5); MEAN CORPUSCULAR VOLUME 85 fL (79.0-98.0); MONOCYTES # (AUTO) 0.7 K/uL (0.0-1.0); MONOCYTES % (AUTO) 11.6 % (1.7-9.3); NEUTROPHILS % (AUTO) 66.8 % (40.0-70.0); PLATELET COUNT (AUTO) 129 K/uL (130-430); RED BLOOD CELL COUNT(AUTO) 4.66 MIL/uL (4.2-6.2); RED CELL DISTRIBUTION WIDTH 14.6 % (9.0-15.0); WHITE BLOOD COUNT (AUTO) 5.9 K/uL (4.8-10.8)
[2021-12-13] MEDS ORDERED: DIPHENOXYLATE HCL/ATROP SULF 2.5 MG TAB PO PRN (07:45)
[2021-12-13 08:00] VITALS: BP_SYST 121
[2021-12-13] MEDS: metroNIDAZOLE 500 mg/NS 100 ML IV SCH ×3 (08:00→22:50)
[2021-12-13] MEDS: metFORMIN HCL 500 MG TABLET PO SCH ×2 (08:00→16:48)
[2021-12-13 08:33] LABS: CALCIUM 8.7 mg/dL (8.4-11.0); CREATININE 0.83 mg/dL (0.55-1.30); POTASSIUM 3.5 mmol/L (3.5-5.1); TOTAL BILIRUBIN 0.5 mg/dL (0.0-1.0)
[2021-12-13] MEDS: SERTRALINE HCL 50 MG TABLET PO SCH (09:00)
[2021-12-13] MEDS ORDERED: SIMETHICONE 40 MG/0.6 ML ML ONE (10:06)
[2021-12-13] MEDS ORDERED: BENZOCAINE 20% 0.5mL UD SPRAY MM ONE (10:06)
[2021-12-13] MEDS: MIDAZOLAM HCL 5 MG/5 ML VIAL ONE ×2 (10:13→10:15)
[2021-12-13] MEDS: MEPERIDINE 100 MG INJ. 100 MG/ML VIAL ONE ×2 (10:13→10:15)
[2021-12-13] MEDS ORDERED: DIATR MEGLU/DIATRIZ SOD 30 ML SOLUTION PO ONE (11:11)
[2021-12-13 12:00] VITALS: BP_SYST 110
[2021-12-13 16:00] VITALS: BP_SYST 120
[2021-12-13 20:00] VITALS: BP_SYST 125
[2021-12-14 02:00] VITALS: BP_SYST 125
[2021-12-14] MEDS: PANTOPRAZOLE SODIUM 40 MG in NS 50 ML IV SCH ×4 (05:18→21:36)
[2021-12-14] MEDS: metroNIDAZOLE 500 mg/NS 100 ML IV SCH ×3 (05:19→21:37)
[2021-12-14] MEDS: INSULIN REGULAR, HUMAN 100 UNITS/ML, 3 ML VIAL (humuLIN R) SUBCUT PRN ×4 (06:48→21:39)
[2021-12-14 07:03] LABS: CALCIUM 8.3 mg/dL (8.4-11.0); CREATININE 0.73 mg/dL (0.55-1.30); POTASSIUM 3.5 mmol/L (3.5-5.1)
[2021-12-14 07:04] LABS: BASOPHILS % (AUTO) 0.5 % (0.0-2.0); EOSINOPHILS # (AUTO) 0.1 K/uL (0.0-0.4); EOSINOPHILS % (AUTO) 4.2 % (0.0-4.0); HEMATOCRIT 35.9 % (36-48); LYMPHOCYTES # (AUTO) 0.8 K/uL (1.0-5.5); LYMPHOCYTES % (AUTO) 28.2 % (20.5-51.5); MEAN CORPUSCULAR VOLUME 85 fL (79.0-98.0); MONOCYTES # (AUTO) 0.4 K/uL (0.0-1.0); MONOCYTES % (AUTO) 15.1 % (1.7-9.3); NEUTROPHILS # (AUTO) 1.5 K/uL (1.8-7.7); PLATELET COUNT (AUTO) 109 K/uL (130-430); RED BLOOD CELL COUNT(AUTO) 4.22 MIL/uL (4.2-6.2); RED CELL DISTRIBUTION WIDTH 14.8 % (9.0-15.0)
[2021-12-14 08:00] VITALS: BP_SYST 123
[2021-12-14] MEDS: metFORMIN HCL 500 MG TABLET PO SCH ×2 (09:09→17:52)
[2021-12-14] MEDS: SERTRALINE HCL 50 MG TABLET PO SCH (09:09)
[2021-12-14 12:00] VITALS: BP_SYST 139
[2021-12-14] MEDS: ONDANSETRON HCL 4 MG/2 ML VIAL IVP PRN ×2 (12:53→20:17)
--- NOTE | 2021-12-14 13:50 | NUR ---
PAGED PAGED DR. FRANCIS BECAUSE PT C/O VAGINAL PAIN AFTER PELVIC US EXAM.
--- NOTE | 2021-12-14 13:57 | NUR ---
PAIN MED RECEIVED NEW ORDER FOR PAIN MANAGEMENT FROM DR. STEWART
[2021-12-14] MEDS ORDERED: ACETAMINOPHEN 325 MG TABLET PO PRN (14:00)
--- NOTE | 2021-12-14 14:09 | NUR ---
CONSULTATION PAGED/CALLED Reason for Consultation: LOW PLT AND LOW WBC Person Who was Notified: ELANA Consulting Physician: SCOTTY MOYER Ordering Physician: MIKAL STEWART
--- NOTE | 2021-12-14 15:30 | NUR ---
NOTES PT WAS FOUNDING BY A STAFF THAT SHE WAS WALKING ON HALLWAY. NO INJURY DENIES ANY PAIN NOTED. CHANGED ROOM TO CLOSEST TO NURSE'S STATION.
[2021-12-14 16:00] VITALS: BP_SYST 122; BP_SYST 140
--- NOTE | 2021-12-14 16:30 | NUR ---
NOTE PT WANTED TO GO HOME. OFFERED AMA FORM. PT DECIDED TO STAY OVER NIGHT.
--- NOTE | 2021-12-14 19:00 | NUR ---
CLOSING NOTE PT CONTINUE TO WALK OUT TO THE HALLWAY WITHOUT SEEKING HELP OR ASSISTANCE. PT VERBALIZES THAT SHE WANTED TO WALK. EDUCATED PT THAT USE THE CALL LIGHT FOR ASSISTANCE. PT VERBALIZED UNDERSTANDING. IV RUNNING ORDERED WITH SITE KEPT PATENT AND CLEAN. BED IS LOCKED AND AT LOW POSITION. BREATHING IS EVEN AND NON-LABORED. DENIES ANY PAIN OR DISCOMFORT. ENDORSED CARE TO ON COMING CLAIMS ADJUSTER NURSE.
--- NOTE | 2021-12-14 19:10 | NUR ---
OPENING NOTE REPORT RECEIVED FROM DAYSHIFT NURSE. PATIENT RECEIVED SITTING AT BEDSIDE, EDGE OF BED. NO S/S OF ACUTE DISTRESS. BREATHING EVEN AND UNLABORED. IVF INFUSING WELL, IV SITE PATENT, NO SIGNS OF INFILTRATION OR INFECTION NOTED. SKIN WAR AND DRY TO TOUCH, NO S/S OF HYPOGLYCEMIA NOTED. PATIENT INSTRUCTED TO CALL WHEN SHE NEEDS TO AMBULATE, PATIENT VERBALIZED UNDERSTANDING. PATIENT EDUCATED ON PROPER USE OF CALL LIGHT, PATIENT DEMONSTRATED BACK PROPER USE. BED IS LOCKED AND AT LOWEST POSITION. WILL CONTINUE TO MONITOR.
[2021-12-14 20:00] VITALS: BP_SYST 121
--- NOTE | 2021-12-14 23:00 | NUR ---
ROUNDS PATIENT IN BED, RESTING. NO SIGNS OF DISCOMFORT. CHEST RISE AND FALL EVEN BILATERALLY. ALL NEEDS MET. WILL CONTINUE TO MONITOR.
[2021-12-15] VITALS: BP_SYST 128
--- NOTE | 2021-12-15 01:40 | NUR ---
BM/DIARRHEA PATIENT HAD LOOSE BM. PRN MEDICATION ADMINISTERED FOR DIARRHEA. WILL MONITOR.
[2021-12-15] MEDS: PANTOPRAZOLE SODIUM 40 MG in NS 50 ML IV SCH ×3 (02:49→15:08)
--- NOTE | 2021-12-15 04:10 | NUR ---
BSC PATIENT ASSISTED TO BSC. PATIENT TOLERATED WELL. ASSISTED BACK TO BED. ALL NEEDS MET. BED ALARM ON. WILL CONTINUE TO MONITOR.
[2021-12-15] MEDS: metroNIDAZOLE 500 mg/NS 100 ML IV SCH ×2 (05:56→15:09)
--- NOTE | 2021-12-15 06:40 | NUR ---
CLOSING NOTE PATIENT IN BED, RESTING COMFORTABLY. NO S/S OF ACUTE DISTRESS. BREATHING IS EVEN AND UNLABORED. HOB RAISED. IVF INFUSING WELL. IV SITE IS PATENT, NO SIGNS OF INFILTRATION OR INFECTION NOTED. SKIN WARM AND DRY TO TOUCH, NO S/S OF HYPOGLYCEMIA NOTED. ALL NEEDS MET THROUGHOUT SHIFT. FALL, SAFETY PRECAUTIONS MAINTAINED THROUGHOUT SHIFT. WILL CONTINUE TO MONITOR UNTIL PATIENT CARE IS ENDORSED TO ONCOMING DAYSHIFT NURSE.
--- NOTE | 2021-12-15 07:01 | NUR ---
receive the pt from [facility] shift lead RAMESH merchant with admitting diagnosis of gastro intestinal bleeding . no complain of pain at this time . no sign and symptoms of shortness of breath . will continue to monitor
[2021-12-15 08:00] VITALS: BP_SYST 123
[2021-12-15 08:00] LABS: BASOPHILS % (AUTO) 0.4 % (0.0-2.0); EOSINOPHILS # (AUTO) 0.1 K/uL (0.0-0.4); EOSINOPHILS % (AUTO) 3.8 % (0.0-4.0); HEMATOCRIT 34.3 % (36-48); LYMPHOCYTES # (AUTO) 0.9 K/uL (1.0-5.5); LYMPHOCYTES % (AUTO) 27.4 % (20.5-51.5); MEAN CORPUSCULAR VOLUME 84 fL (79.0-98.0); MONOCYTES # (AUTO) 0.5 K/uL (0.0-1.0); MONOCYTES % (AUTO) 13.5 % (1.7-9.3); NEUTROPHILS # (AUTO) 1.8 K/uL (1.8-7.7); NEUTROPHILS % (AUTO) 54.9 % (40.0-70.0); PLATELET COUNT (AUTO) 114 K/uL (130-430); RED BLOOD CELL COUNT(AUTO) 4.08 MIL/uL (4.2-6.2); RED CELL DISTRIBUTION WIDTH 14.3 % (9.0-15.0); WHITE BLOOD COUNT (AUTO) 3.3 K/uL (4.8-10.8)
[2021-12-15 08:12] LABS: CALCIUM 8.2 mg/dL (8.4-11.0); CREATININE 0.79 mg/dL (0.55-1.30); POTASSIUM 3.6 mmol/L (3.5-5.1)
[2021-12-15] MEDS: metFORMIN HCL 500 MG TABLET PO SCH (09:30)
[2021-12-15] MEDS: SERTRALINE HCL 50 MG TABLET PO SCH (09:30)
[2021-12-15 11:40] VITALS: BP_SYST 125
--- NOTE | 2021-12-15 15:15 | NUR ---
no sign and symptoms of bleeding . md hans garay discharge the pt to home . made some pt discharge teachings . stated on the discharge papers
[2021-12-15 15:20] VITALS: BP_SYST 130
[2021-12-15 15:23] VITALS: BP_SYST 123
--- NOTE | 2021-12-15 15:45 | NUR ---
remove id band iv on the patient . brought the patient in a wheelchair to the lobby to a waiting private car by her in a stable condition
[2021-12-19 04:07] LABS: FOLATE (FOLIC ACID) >20.0 ng/mL (>3.0)
[2021-12-19 08:54] LABS: FERRITIN 171 ng/mL (15-150)
== END 2021-12-15 15:45 | disposition home or self-care (01) | DRG 241 ==
LOC: SED 08:45 → STU 13:37 → SMU 12-14 16:10
PROVIDERS: ADMIT Internal Medicine; ATTEND Internal Medicine
PROC: 0DB78ZX Excision of Stomach, Pylorus, Via Natural or Artificial Opening Endoscopic, Diagnostic (ICD-10-PCS; principal; 2021-12-13 10:15)
DX: K29.71 Gastritis, unspecified, with bleeding (principal); D69.6 Thrombocytopenia, unspecified; E11.9 Type 2 diabetes mellitus without complications; F20.9 Schizophrenia, unspecified; F32.A Depression, unspecified; M19.90 Unspecified osteoarthritis, unspecified site; K82.4 Cholesterolosis of gallbladder; K66.0 Peritoneal adhesions (postprocedural) (postinfection); K57.90 Diverticulosis of intestine, part unspecified, without perforation or abscess without bleeding; Z20.822 Contact with and (suspected) exposure to COVID-19; Z88.6 Allergy status to analgesic agent; Z88.1 Allergy status to other antibiotic agents; Z88.8 Allergy status to other drugs, medicaments and biological substances; Z79.899 Other long term (current) drug therapy; Z79.84 Long term (current) use of oral hypoglycemic drugs
CPT/HCPCS: 36415; 43239; 76376; 76700-TC; 76856-TC; 78226; 80048; 80053; 80061; 82607; 82728; 82746; 82962; 83036; 83690; 84484; 85025; 85610-TC; 85730-TC; 86304; 86886; 86900; 86901; 87045-TC; 87046; 87081; 88305; 88312; 88313; 89055; 93005; 96361; 96374; 96375; 99285; A9537; C9113; G0378; J1815; J1956; J2175; J2250; J2270; J2405; J3490; Q9964

== ENCOUNTER 2022-02-27 05:22 | Inpatient (IN) | payer MEDICAID ==
[~2022-02-27] VITALS: Ht 170.2 cm; Wt 62.1 kg
[~2022-02-27 05:22] MED LIST changes: -CYAN100010 PO; +DOCU-144 PO; -FLUC200T PO; -LACT1CAP57 PO; -LEVO-62 PO; -LOPE2CAP PO; -MULT-33 PO; -PEPTO PO; +POLY17PO4 PO; -VITD2000 PO
[2022-02-27 05:29] VITALS: BP_SYST 107
--- NOTE | 2022-02-27 05:37 | NUR ---
Patient to ER bed 07 to gown for evaluation. Side rails up. Report given to TERESE CHANDLER.
--- NOTE | 2022-02-27 05:40 | NUR ---
DR. MARIEE AT BEDSIDE FOR MSE
[2022-02-27] MEDS ORDERED: NACL 0.9% 1,000 ML IV ONE ×2 (05:45→06:30)
--- NOTE | 2022-02-27 05:45 | NUR ---
PT COMPLAINING OF ABD PAIN ACCOMPANIED WITH N/V. STATES SHE IS UNABLE TO KEEP FOOD AND LIQUID DOWN. ADMITS TO HAVING REGULAR BOWEL MOVEMENTS. ABD APPEARS DISTENDED, ROUND. STATES SHE RECENTLY SEEN IN ED FOR SIMILAR COMPLAINT. PT AOX4. AMBULATORY. RESP E/U. NAD NOTED AT THIS TIME. HX DM
--- NOTE | 2022-02-27 05:58 | NUR ---
PT TO CT
--- NOTE | 2022-02-27 06:26 | NUR ---
PT BACK FROM CT. CONNECT PT TO FLUIDS.
[2022-02-27] MEDS ORDERED: ONDANSETRON HCL 4 MG/2 ML VIAL IVP ONE ×2 (06:30)
[2022-02-27] MEDS ORDERED: KETOROLAC TROMETHAMINE 30 MG VIAL IVP ONE (06:45)
[2022-02-27 06:58] LABS: BASOPHILS % (AUTO) 0.7 % (0.0-2.0); CALCIUM 8.6 mg/dL (8.4-11.0); CREATININE 0.81 mg/dL (0.55-1.30); EOSINOPHILS # (AUTO) 0.1 K/uL (0.0-0.4); EOSINOPHILS % (AUTO) 1.7 % (0.0-4.0); HEMATOCRIT 43.3 % (36-48); HEMOGLOBIN 14.8 g/dL (12.0-16.0); LYMPHOCYTES # (AUTO) 1.1 K/uL (1.0-5.5); LYMPHOCYTES % (AUTO) 20.5 % (20.5-51.5); MEAN CORPUSCULAR HEMOGLOBIN 29 pg (27-31); MEAN CORPUSCULAR HGB CONC 34 % (32-36); MEAN CORPUSCULAR VOLUME 84 fL (79.0-98.0); MONOCYTES # (AUTO) 0.8 K/uL (0.0-1.0); MONOCYTES % (AUTO) 13.7 % (1.7-9.3); NEUTROPHILS # (AUTO) 3.5 K/uL (1.8-7.7); NEUTROPHILS % (AUTO) 63.4 % (40.0-70.0); PLATELET COUNT (AUTO) 198 K/uL (130-430); RED BLOOD CELL COUNT(AUTO) 5.16 MIL/uL (4.2-6.2); RED CELL DISTRIBUTION WIDTH 13.5 % (9.0-15.0); WHITE BLOOD COUNT (AUTO) 5.6 K/uL (4.8-10.8)
[2022-02-27 07:10] LABS: ALBUMIN 3.2 g/dL (3.4-4.8); TOTAL BILIRUBIN 0.5 mg/dL (0.0-1.0)
--- NOTE | 2022-02-27 07:29 | NUR ---
REPORT TO JAZMIN CHANDLER
--- NOTE | 2022-02-27 08:08 | NUR ---
PT IS AAOX3 PT DENIES CURRENT NV, ATE 2 OUNCES OF CEREAL AND 2 OUNCES OF ORANGE JUICE. MD MURRIETA NOTED PT IS NPO. DISCUSSED WITH PT PREPARATION FOR POSSIBLE SURGERY SCHEDULE.
--- NOTE | 2022-02-27 09:18 | NUR ---
Pt on the bedside commode attempt to provide urine sample.
--- NOTE | 2022-02-27 09:24 | NUR ---
Pt complains of nausea and uncontrolled episodes of vomiting.
--- NOTE | 2022-02-27 09:40 | NUR ---
Admit bed requested Patient will be admitted to care of . Admitted to MedSurg unit. Diagnosis obstructive bowel syndrome Inpatient (Yes or No) y Observation (Yes or No) n Orientation concerns or request close to nursing station (Yes or No) n Covid Status negative On vent or bipap n Isolation requirements n Needs a sitter n From Home (Yes or if No enter name of facility) home Requires Dialysis (Yes or No) n Med Rec Completed (Yes of No) pending
[2022-02-27] MEDS ORDERED: MUPIROCIN 2% TOPICAL OINTMENT 22 GM NS PRN ×2 (09:45→20:45)
[2022-02-27] MEDS ORDERED: DOCUSATE SODIUM 100 MG CAPSULE PO PRN (09:45)
[2022-02-27] MEDS ORDERED: POTASSIUM CHLORIDE 20 MEQ TAB.PRT.SR PO PRN (09:45)
[2022-02-27] MEDS ORDERED: ACETAMINOPHEN 325 MG TABLET PO PRN (09:45)
[2022-02-27] MEDS ORDERED: MORPHINE 2 MG/ML INJ. SYRINGE IVP PRN ×2 (09:45)
[2022-02-27] MEDS ORDERED: DEXTROSE 50% JECT 50 ML DISP.SYRIN IVP PRN (09:45)
[2022-02-27] MEDS ORDERED: MAGNESIUM SULFATE 50 ML IV PRN (09:45)
[2022-02-27] MEDS ORDERED: LORazepam 2 MG/ML VIAL IVP PRN (09:45)
[2022-02-27] MEDS ORDERED: ONDANSETRON HCL 4 MG/2 ML VIAL IVP PRN (09:45)
--- NOTE | 2022-02-27 10:46 | NUR ---
Field Gauger states unable to contact surgeon MD Yanes; contacted MD Block and advised to contact MD Duval for surgery consultation.
[2022-02-27 11:57] LABS: BILIRUBIN,URINE 2+ (NEGATIVE); CLARITY/URINE CLEAR (CLEAR); COLOR,URINE YELLOW (YELLOW); GLUCOSE,URINE NEGATIVE (NEGATIVE); KETONES,URINE 2+ (NEGATIVE); LEUKOCYTE ESTERASE ,URINE TRACE (NEGATIVE); NITRITE, URINE NEGATIVE (NEGATIVE); PROTEIN URINE 1+ (NEGATIVE)
[2022-02-27 12:09] LABS: BLOOD, URINE TRACE (NEGATIVE)
[2022-02-27 12:10] LABS: BACTERIA,URINE FEW /HPF (None Seen); MUCUS,URINE 1+ /LPF (None Seen); WBC,URINE 20-50 /HPF (0-3)
--- NOTE | 2022-02-27 15:33 | NUR ---
Pt resting with bed down, rails up, vss.
--- NOTE | 2022-02-27 18:45 | NUR ---
Brandin HAMILTON DISCUSSES WITH PT PREPARATION OF INVESTIGATION OF SMALL BOWEL OBSTRUCTION. PT STATES WILL PROCEED WITH MD BANDA INSTEAD OF PREVIOUS CONSULTATION WITH SURGEON OH. MD BANDA, ORDERED NG TUBE AND ABDOMINAL VIEW XRAY FOR SET FOR AM.
--- NOTE | 2022-02-27 19:25 | NUR ---
GAVE REPORT TO RN GURDEEP
--- NOTE | 2022-02-27 19:30 | NUR ---
Received report from RAMESH Rucker; assuming care of patient at this time.
--- NOTE | 2022-02-27 19:40 | NUR ---
Patient A/Ox4, VSS, resp even and unlabored. Patient lying in bed with side rails raised. Nad noted at this time.
--- NOTE | 2022-02-27 20:44 | NUR ---
Patient will be admitted to care of RAMESH Whittington. Admitted to med surg unit. Will go to room 126B. Belongings list completed. Complete and up to date summary report printed. SBAR report given to RAMESH Whittington at bedside with opportunity for questions.
[2022-02-27] MEDS: NACL 0.9% 1,000 ML IV SCH (23:45)
--- NOTE | 2022-02-27 23:50 | NUR ---
Patient REFUSE Nasal gastric Tube .
--- NOTE | 2022-02-27 23:51 | NUR ---
Phone paged DR MAGAÑA for update patient Refuse NGT .
[2022-02-28] VITALS: BP_SYST 138
[2022-02-28 01:07] VITALS: BP_SYST 136
--- NOTE | 2022-02-28 04:48 | NUR ---
HOURLY Rounding assist patient out of bed ambulate to Rest Room steady Gait / FALL MEASURES implemented & effective no SOB noted procedures explained , call fernandez given to patient .
--- NOTE | 2022-02-28 05:12 | NUR ---
CONSULTATION PAGED/CALLED Reason for Consultation: SBO Person Who was Notified: DYLAN Consulting Physician: Glass Mechanic Specialty: Ordering Physician:
[2022-02-28] MEDS: NACL 0.9% 1,000 ML IV SCH ×3 (05:45→18:15)
[2022-02-28] MEDS ORDERED: DOCUSATE SODIUM 100 MG CAPSULE PO PRN (08:00)
[2022-02-28] MEDS ORDERED: traZODone HCL 50 MG TABLET (DESYREL) PO PRN (08:00)
[2022-02-28] MEDS: SERTRALINE HCL 50 MG TABLET PO SCH (09:00)
[2022-02-28 11:28] VITALS: BP_SYST 124
--- NOTE | 2022-02-28 13:29 | NUR ---
Flag Football Coach NEW CAR SALES MANAGER met with pt. a bedside. Pt. was emotional and stated as she cried, "What is wrong with me. I am scared" . NEW CAR SALES MANAGER asked pt. if she can focus on her healing and resting. Pt. stated she vomits at home and her boyfriend who is good to her, takes care of her and cleans her up. When asked, Pt. stated she had a process control board operator from [facility], but her therapist left the practice. NEW CAR SALES MANAGER asked if pt. could call to get another therapist and pt. agreed to do so. NEW CAR SALES MANAGER asked pt. is she had ever felt suicidal and pt. denied this. NEW CAR SALES MANAGER asked pt. to confirm her address, but pt. was unable to recite her address only that she resides at [facility] on [address] . NEW CAR SALES MANAGER asked pt about her support system. Aside form her boyfriend, pt. stated she has a sister in [place], Marlene Juan listed on the facesheet. NEW CAR SALES MANAGER asked if pt. needed anything or had any questions. Pt. stated she is good. NEW CAR SALES MANAGER will remain available as needed.
[2022-02-28 16:27] VITALS: BP_SYST 125
[2022-03-01] VITALS (7 sets, daily range): BP systolic 115–145
[2022-03-01] MEDS: NACL 0.9% 1,000 ML IV SCH ×3 (03:20→20:25)
[2022-03-01] MEDS ORDERED: GASTROGRAFIN 120 ML ONE (08:37)
[2022-03-01] MEDS ORDERED: MUPIROCIN 2% TOPICAL OINTMENT 22 GM NS PRN (14:30)
--- NOTE | 2022-03-01 19:15 | NUR ---
OPENING NOTE REPORT RECEIVED FROM DAYSHIFT NURSE. PATIENT RECEIVED LYING IN BED, AWAKE, ALERT, NO S/S OF ACUTE DISTRESS. PATIENT STATES SHE NEEDS TO BE CLEANED, SHE VOIDED, WILL BE CLEANED BY RN. BREATHING IS EVEN AND UNLABORED. IVF INFUSING WELL, IV SITE PATENT, NO SIGNS OF INFILTRATION OR INFECTION NOTED. SKIN WARM AND DRY TO TOUCH. CALL LIGHT WITH PATIENT. BED ALARM ON. BED IS LOCKED AND AT LOWEST POSITION. WILL CONTINUE TO MONITOR.
[2022-03-01] MEDS ORDERED: ONDANSETRON HCL 4 MG/2 ML VIAL ONE (20:22)
--- NOTE | 2022-03-01 22:31 | NUR ---
ARA CARE PATIENT ATTEMPTED TO WALK TO BATHROOM, FELT REALLY WEAK. COULD NOT HOLD BM, HAD BM ON CHUCKS. RN CLEANED PATIENT. ALL NEEDS MET. WILL CONTINUE TO MONITOR.
[2022-03-02] VITALS: BP_SYST 119
--- NOTE | 2022-03-02 03:00 | NUR ---
ROUNDS PATIENT IN BED, RESTING. NO SIGNS OF DISCOMFORT. ALL NEEDS MET. WILL MONITOR.
[2022-03-02] MEDS: NACL 0.9% 1,000 ML IV SCH ×2 (06:08→18:41)
--- NOTE | 2022-03-02 06:16 | NUR ---
CLOSING NOTE PATIENT IN BED, RESTING. NO S/S OF ACUTE DISTRESS. BREATHING IS EVEN AND UNLABORED. IVF INFUSING WELL, IV SITE IS PATENT, NO SIGNS OF INFILTRATION OR INFECTION NOTED. SKIN WARM AND DRY TO TOUCH, NO S/S OF HYPOGLYCEMIA NOTED. ALL NEEDS MET THROUGHOUT SHIFT. FALL, SAFETY PRECAUTIONS MAINTAINED THROUGHOUT SHIFT. WILL CONTINUE TO MONITOR UNTIL PATIENT CARE IS ENDORSED TO ONCOMING DAYSHIFT NURSE.
[2022-03-02 07:55] VITALS: BP_SYST 131
[2022-03-02] MEDS ORDERED: GASTROGRAFIN 120 ML ONE (10:58)
--- NOTE | 2022-03-02 15:10 | NUR ---
Dietitian Recommendations * Consider alternative nutrition support (TPN/PPN) within 1-2 days for malnutrition risk and avoid refeeding syndrome - PPN D20%, AA8.5% at 45 ml/hr (goal rate x5-7 days), IL20% at 5 ml/hr via peripheral line Provides: 791 kcal/day, 46 gm protein/day, 1200 ml total volume/day, and GIR: 1.2 mg CHO/kg/min Meets: 51% of lower end of estimated caloric needs, 92% of lower end of estimated protein needs * Consider replenish Mg, Phos, K, and thiamine; monitor electrolytes, thiamine x5 days LP, MS, RD Please refer to Nutrition Assessment for details. Addendum: 03/02/22 at [address] Amended: Links added.
[2022-03-02 18:20] VITALS: BP_SYST 133
--- NOTE | 2022-03-02 19:15 | NUR ---
OPENING NOTE REPORT RECEIVED FROM DAYSHIFT NURSE. PATIENT RECEIVED LYING IN BED, AWAKE, ALERT, NO S/S OF ACUTE DISTRESS. BREATHING EVEN AND UNLABORED. IVF INFUSING WELL. IV SITE PATENT, NO SIGNS OF INFILTRATION OR INFECTION NOTED. CALL LIGHT WITH PATIENT. BED ALARM ON. BED IS LOCKED AND AT LOWEST POSITION. WILL CONTINUE TO MONITOR.
[2022-03-02 20:00] VITALS: BP_SYST 117
[2022-03-02] MEDS ORDERED: traZODone HCL 50 MG TABLET (DESYREL) ONE (20:20)
--- NOTE | 2022-03-02 23:00 | NUR ---
ROUNDS PATIENT IN BED, RESTING. NO SIGNS OF DISCOMFORT. ALL NEEDS MET. WILL CONTINUE TO MONITOR.
[2022-03-03] VITALS: BP_SYST 122
[2022-03-03] MEDS: NACL 0.9% 1,000 ML IV SCH ×2 (03:45→12:47)
[2022-03-03 06:42] LABS: BASOPHILS % (AUTO) 0.5 % (0.0-2.0); EOSINOPHILS # (AUTO) 0.2 K/uL (0.0-0.4); EOSINOPHILS % (AUTO) 3.4 % (0.0-4.0); HEMATOCRIT 40.9 % (36-48); HEMOGLOBIN 13.9 g/dL (12.0-16.0); LYMPHOCYTES # (AUTO) 1.2 K/uL (1.0-5.5); LYMPHOCYTES % (AUTO) 26.2 % (20.5-51.5); MEAN CORPUSCULAR HEMOGLOBIN 28 pg (27-31); MEAN CORPUSCULAR HGB CONC 34 % (32-36); MEAN CORPUSCULAR VOLUME 83 fL (79.0-98.0); MONOCYTES # (AUTO) 0.7 K/uL (0.0-1.0); MONOCYTES % (AUTO) 15.4 % (1.7-9.3); NEUTROPHILS # (AUTO) 2.5 K/uL (1.8-7.7); NEUTROPHILS % (AUTO) 54.5 % (40.0-70.0); PLATELET COUNT (AUTO) 167 K/uL (130-430); RED BLOOD CELL COUNT(AUTO) 4.92 MIL/uL (4.2-6.2); RED CELL DISTRIBUTION WIDTH 13.9 % (9.0-15.0); WHITE BLOOD COUNT (AUTO) 4.5 K/uL (4.8-10.8)
--- NOTE | 2022-03-03 06:44 | NUR ---
CLOSING NOTE PATIENT IN BED, NO S/S OF ACUTE DISTRESS. BREATHING EVEN AND UNLABORED. IVF INFUSING WELL, IV SITE PATENT, NO SIGNS OF INFILTRATION OR INFECTION NOTED. ALL NEEDS MET THROUGHOUT SHIFT. FALL, SAFETY PRECAUTIONS MAINTAINED THROUGHOUT SHIFT. WILL CONTINUE TO MONITOR UNTIL PATIENT CARE IS ENDORSED TO ONCOMING DAYSHIFT NURSE.
[2022-03-03 07:57] VITALS: BP_SYST 129
[2022-03-03 07:58] LABS: CALCIUM 9.1 mg/dL (8.4-11.0); CREATININE 0.73 mg/dL (0.55-1.30)
[2022-03-03 12:15] VITALS: BP_SYST 144
[2022-03-03 16:20] VITALS: BP_SYST 131
--- NOTE | 2022-03-03 19:15 | NUR ---
OPENING NOTE REPORT RECEIVED FROM DAYSHIFT NURSE. PATIENT RECEIVED LYING IN BED, NO S/S OF ACUTE DISTRESS. BREATHING EVEN AND UNLABORED. HOB RAISED. IVF INFUSING WELL. CALL LIGHT WITH PATIENT. BED ALARM ON. BED IS LOCKED AND AT LOWEST POSITION. WILL CONTINUE TO MONITOR.
[2022-03-03 20:00] VITALS: BP_SYST 127
--- NOTE | 2022-03-03 22:39 | NUR ---
ARA CARE PATIENT CLEANED BY RN. TOLERATED WELL. ALL NEEDS MET. WILL MONITOR.
[2022-03-04] VITALS: BP_SYST 129
[2022-03-04] MEDS: NACL 0.9% 1,000 ML IV SCH ×2 (00:51→09:31)
--- NOTE | 2022-03-04 06:39 | NUR ---
CLOSING NOTE PATIENT IN BED, RESTING. NO SIGNS OF DISCOMFORT. ALL NEEDS MET THROUGHOUT SHIFT. WILL MONITOR UNTIL DAYSHIFT ARRIVES AND PATIENT CARE TRANSFERRED.
[2022-03-04 08:40] VITALS: BP_SYST 136
[2022-03-04] MEDS: SERTRALINE HCL 50 MG TABLET PO SCH (09:00)
[2022-03-04 09:57] LABS: CALCIUM 8.7 mg/dL (8.4-11.0); CREATININE 0.58 mg/dL (0.55-1.30)
[2022-03-04 10:57] LABS: BASOPHILS % (AUTO) 0.7 % (0.0-2.0); EOSINOPHILS # (AUTO) 0.2 K/uL (0.0-0.4); EOSINOPHILS % (AUTO) 3.4 % (0.0-4.0); HEMATOCRIT 43.1 % (36-48); HEMOGLOBIN 14.4 g/dL (12.0-16.0); LYMPHOCYTES # (AUTO) 1.3 K/uL (1.0-5.5); LYMPHOCYTES % (AUTO) 26.4 % (20.5-51.5); MEAN CORPUSCULAR HEMOGLOBIN 28 pg (27-31); MEAN CORPUSCULAR HGB CONC 34 % (32-36); MEAN CORPUSCULAR VOLUME 84 fL (79.0-98.0); MONOCYTES # (AUTO) 0.5 K/uL (0.0-1.0); MONOCYTES % (AUTO) 10.8 % (1.7-9.3); NEUTROPHILS # (AUTO) 2.9 K/uL (1.8-7.7); NEUTROPHILS % (AUTO) 58.7 % (40.0-70.0); PLATELET COUNT (AUTO) 155 K/uL (130-430); RED BLOOD CELL COUNT(AUTO) 5.12 MIL/uL (4.2-6.2); RED CELL DISTRIBUTION WIDTH 13.8 % (9.0-15.0); WHITE BLOOD COUNT (AUTO) 4.9 K/uL (4.8-10.8)
--- NOTE | 2022-03-04 15:10 | NUR ---
Nutrition F/U Admitting Diagnosis SBO Reviewed Pertinent Medical/Surgical Hx Medical Record Patient Other Medical History Comment: Per EMR review, 66 YOF w/ PMH of DM, deperession, schizoaffective disorder who came into the ED w/ c/o V and abd pain for the past 2 days. Pt reported intermittent/dull/epigastric pain a/w abd distention, N/V. Pt reported similar complaints 10 days prior and was admitted to ER w/ a Dx of SBO, which was medically managed. Pt has a Hx of constipation but after starting Colace, her BMs are regular. Pt has not had any abd Sx in the past. Pt was also found w/ VMN and mild malnutrition. Subjective Information Pt screened high nutritional risk d/t NPO x5 days. RD met w/ pt's primary RN outside of pt's room prior to RD interview w/ pt at bedside. Bedscale weight -- 133#, shows pt has lost 4#, at least, since admit. RN alerted RD that she has been NPO since admit (5 days). He agreed PPN would be a great option for her since they still havent figured out the reason for her vomiting and potential SBO. Pt is feeling extremely distraught about not finding any answers to her condition. She wants to get better and feels she is not getting appropriate care. Pt wants PPN to help her get stronger. Pt is not yet meeting nutritional needs and is at heightened risk for malnutrition d/t Hx of unintentional wt loss, lack of PO, and unintentional wt loss. Current Diet Order/Nutrition Support NPO x 5 days Patient/Significant Other Able To Verbalize Education Provided Not Indicated Pertinent Medications NS at 100 ml/hr Pertinent Labs 03/04: K 3.0 L, BUN 7 L, BG 87 WNL, POC BG 133 H, ALB 3.2 L Height (Feet) 5 feet Height (Inches) 7.00 inches Weight (Pounds) 137 pounds Weight (Calculated Kilograms) 62.925907 kilograms Patient Weight 62.142 kg Body Mass Index 21.45 kg/m2 Usual Weight 147 lbs %UBW 93 %IBW 101 [place]/Adjusted Body Weight 135#/61.4 kg Recent Weight Change Yes Food Allergies 10# unintentional wt change/7% wt change within couple mo Usual Diet At Home Unrestricted per pt report; avoids fish d/t dislike only LBM: 03/04 x 2 Current % PO N/A Estimated Energy Expenditure (kcals/day) 8296-6561 (25-30 kcal/kg CBW d/t adult maintenance) Estimated Protein Required (g/day) 50-61 (0.8-1 gm/kg CBW d/t adult maintenance) Estimated Fluid Required (l/day) 1.6-1.9 (1 ml/kcal/day for adult maintenance) Problem/Etiology/Signs/Symptoms *Increased risk for malnutrition R/T complicated GI function AEB pt's inability to "keep food down," N/V/abd pain, and 10# unintentional wt change/7% wt change within couple mo ELECTRICAL MACHINIST (ongoing) * Inadequate oral intake r/t diet order a/e/b NPO since 02/27 (NEW) Expected Outcomes/Goals - Monitor provision of alternative nutrition support w/ goal of pt meeting >50% of estimated nutritional needs, labs trending WNL, normal GI function, and skin integrity/wt maintenance Dietitian Recommendations * Consider alternative nutrition support (TPN/PPN) d/t NPO for 5 days, and at risk of Malnutrition and refeeding syndrome - PPN D20%, AA8.5% at 45 ml/hr (goal rate x5-7 days), IL20% at 5 ml/hr via peripheral line Provides: 791 kcal/day, 46 gm protein/day, 1200 ml total volume/day, and GIR: 1.2 mg CHO/kg/min Meets: 51% of lower end of est caloric needs, 92% of lower end of est protein needs * Consider replenish Mg, Phos, K, and thiamine; monitor electrolytes, thiamine x5 days * Pt would like to speak w/ therapist or social media director as she is feeling extremely depressed and hopeless Follow Up High Risk: F/U in 2-3days GS, MPH, RD
--- NOTE | 2022-03-04 15:16 | NUR ---
Dietitian Recommendations * Consider alternative nutrition support (TPN/PPN) d/t NPO for 5 days, and at risk of Malnutrition and refeeding syndrome - PPN D20%, AA8.5% at 45 ml/hr (goal rate x5-7 days), IL20% at 5 ml/hr via peripheral line Provides: 791 kcal/day, 46 gm protein/day, 1200 ml total volume/day, and GIR: 1.2 mg CHO/kg/min Meets: 51% of lower end of est caloric needs, 92% of lower end of est protein needs * Consider replenish Mg, Phos, K, and thiamine; monitor electrolytes, thiamine x5 days * Pt would like to speak w/ therapist or social services specialist as she is feeling extremely depressed and hopeless GS, MPH, RD Please refer to RD F/U for further details
[2022-03-04 20:00] VITALS: BP_SYST 117
--- NOTE | 2022-03-04 21:00 | NUR ---
Paged Dr. Galeano, Jerry s/w Stephany
--- NOTE | 2022-03-04 23:08 | NUR ---
Second Paged for Jerry Leigh s/w Stephany
[2022-03-05 01:00] VITALS: BP_SYST 126
[2022-03-05] MEDS ORDERED: ONDANSETRON HCL 4 MG/2 ML VIAL ONE (03:07)
[2022-03-05] MEDS ORDERED: ONDANSETRON HCL 4 MG/2 ML VIAL IVP PRN (03:15)
[2022-03-05] MEDS: NACL 0.9% 1,000 ML IV SCH ×2 (03:31→09:11)
[2022-03-05 08:12] VITALS: BP_SYST 121
[2022-03-05] MEDS ORDERED: POTASSIUM CHLORIDE 40 MEQ, LIDOCAINE JECT 2% PF 100 MG 50 MG in NS 250 ML IV ONE (09:00)
[2022-03-05] MEDS ORDERED: POTASSIUM CHLORIDE 20 MEQ TAB.PRT.SR PO SCH (09:00)
[2022-03-05] MEDS: SERTRALINE HCL 50 MG TABLET PO SCH (11:07)
[2022-03-05 12:30] VITALS: BP_SYST 122
--- NOTE | 2022-03-05 16:45 | NUR ---
Patient ready discharge. All paperwork and education provided. Patient took all of her belongings. No distress noted. Alert and oriented x4. Patient is ambulatory with steady gait to personal vehicle. Patient and patient's boyfriend aware of discharge. Patient escorted via wheelchair.
--- NOTE | 2022-03-05 17:03 | NUR ---
IV removed and area is C/D/I.
--- NOTE | 2022-03-06 09:22 | NUR ---
Financial Services Technician LATE ENTRY from 03/05/22 Nutritional Services has asked BUFFING WHEEL OPERATOR to speak to pt as she had been feeling down and asked to see a therapist. BUFFING WHEEL OPERATOR checked in on pt once again. Pt was sitting upright AOx4. Pt. remembered BUFFING WHEEL OPERATOR from their first interview last week. Pt. stated she still doesn't know what is wrong with her body and is just waiting. BUFFING WHEEL OPERATOR offered reassurance and asked pt if she had spoken to her family. Pt. stated she spoke to her sister and her boyfriend. BUFFING WHEEL OPERATOR asked pt. is she had spoken to her therapist from [facility]. Pt. stated she had and she is to call them once she is discharged and therapist will come see her. Pt. stated she is did not need anything. BUFFING WHEEL OPERATOR told pt. how she can reach her should she need to talk. BUFFING WHEEL OPERATOR will remain available as needed.
== END 2022-03-05 16:30 | disposition home or self-care (01) | DRG 247 ==
LOC: SED 05:22 → SMU 20:44 → SED 20:44 → SMU 23:19 → UNDODISIN 03-01 14:15
PROVIDERS: ADMIT Family Medicine; ATTEND Family Medicine
PROC: 0D9670Z Drainage of Stomach with Drainage Device, Via Natural or Artificial Opening (ICD-10-PCS; principal; 2022-02-27)
DX: K56.609 Unspecified intestinal obstruction, unspecified as to partial versus complete obstruction (principal); N17.0 Acute kidney failure with tubular necrosis; E44.1 Mild protein-calorie malnutrition; E87.6 Hypokalemia; N39.0 Urinary tract infection, site not specified; F20.9 Schizophrenia, unspecified; E11.9 Type 2 diabetes mellitus without complications; Z20.822 Contact with and (suspected) exposure to COVID-19; F32.A Depression, unspecified; Z88.6 Allergy status to analgesic agent; Z88.0 Allergy status to penicillin; Z88.8 Allergy status to other drugs, medicaments and biological substances; Z79.84 Long term (current) use of oral hypoglycemic drugs; Z79.899 Other long term (current) drug therapy; Z68.21 Body mass index [BMI] 21.0-21.9, adult
CPT/HCPCS: 36415; 74018; 74250-TC; 76376; 80048; 80053; 81000; 82962; 83690; 85025; 87086; 93005; 96361; 96374; 96375; 99285; J1885; J1956; J2405; J3480; J7030; J7050; Q9963

== ENCOUNTER 2022-03-17 08:26 | Inpatient (IN) | payer MEDICARE, MEDICAID ==
[~2022-03-17] VITALS: Ht 170.2 cm; Wt 58.1 kg
[2022-03-17 08:26] VITALS: BP_SYST 134
[2022-03-17] MEDS ORDERED: NACL 0.9% 1,000 ML IV ONE (09:15)
[2022-03-17] MEDS ORDERED: MORPHINE 4 MG INJ. 4 MG/ML VIAL IVP ONE (09:15)
[2022-03-17] MEDS ORDERED: PROCHLORPERAZINE EDISYLATE 10 MG/2 ML VIAL IVP ONE (09:15)
[2022-03-17 09:36] LABS: BASOPHILS % (AUTO) 0.5 % (0.0-2.0); EOSINOPHILS # (AUTO) 0.1 K/uL (0.0-0.4); EOSINOPHILS % (AUTO) 1.1 % (0.0-4.0); HEMATOCRIT 45.9 % (36-48); HEMOGLOBIN 15.3 g/dL (12.0-16.0); LYMPHOCYTES # (AUTO) 1.7 K/uL (1.0-5.5); LYMPHOCYTES % (AUTO) 24.7 % (20.5-51.5); MEAN CORPUSCULAR HEMOGLOBIN 28 pg (27-31); MEAN CORPUSCULAR HGB CONC 33 % (32-36); MEAN CORPUSCULAR VOLUME 85 fL (79.0-98.0); MONOCYTES % (AUTO) 14.4 % (1.7-9.3); NEUTROPHILS # (AUTO) 4.2 K/uL (1.8-7.7); NEUTROPHILS % (AUTO) 59.3 % (40.0-70.0); PLATELET COUNT (AUTO) 175 K/uL (130-430); RED CELL DISTRIBUTION WIDTH 15.4 % (9.0-15.0); WHITE BLOOD COUNT (AUTO) 7.1 K/uL (4.8-10.8)
[2022-03-17 09:53] LABS: CALCIUM 8.9 mg/dL (8.4-11.0); CREATININE 1.09 mg/dL (0.55-1.30)
[2022-03-17 09:58] LABS: ALBUMIN 3.4 g/dL (3.4-4.8); TOTAL BILIRUBIN 0.6 mg/dL (0.0-1.0)
[2022-03-17] MEDS ORDERED: MAG HYDROX/AL HYDROX/SIMETH 30 ML, LIDOCAINE VISCOUS 2% 15ML (PO) 15 ML, DICYCLOMINE HC... PO ONE ×3 (11:00)
[2022-03-17] MEDS ORDERED: PANTOPRAZOLE SODIUM 40 MG/VIAL (PROTONIX) IVP ONE (11:00)
[2022-03-17] MEDS ORDERED: DIATR MEGLU/DIATRIZ SOD 30 ML SOLUTION PO ONE (12:46)
[2022-03-17] MEDS ORDERED: MUPIROCIN 2% TOPICAL OINTMENT 22 GM NS PRN (14:00)
[2022-03-17] MEDS ORDERED: DEXTROSE 50% JECT 50 ML DISP.SYRIN IVP PRN (14:00)
[2022-03-17] MEDS ORDERED: MAGNESIUM SULFATE 50 ML IV PRN (14:00)
[2022-03-17] MEDS ORDERED: ONDANSETRON HCL 4 MG/2 ML VIAL IVP PRN (14:00)
[2022-03-17] MEDS ORDERED: MORPHINE 2 MG/ML INJ. SYRINGE IVP PRN ×2 (14:00)
[2022-03-17] MEDS: NACL 0.9% 1,000 ML IV SCH (14:00)
[2022-03-17] MEDS ORDERED: ACETAMINOPHEN 325 MG TABLET PO PRN (14:00)
[2022-03-17] MEDS ORDERED: POTASSIUM CHLORIDE 20 MEQ TAB.PRT.SR PO PRN (14:00)
[2022-03-17] MEDS ORDERED: DOCUSATE SODIUM 100 MG CAPSULE PO PRN (14:00)
[2022-03-17] MEDS ORDERED: GASTROGRAFIN 120 ML ONE (16:04)
[2022-03-17] MEDS ORDERED: PANTOPRAZOLE SODIUM 40 MG/VIAL (PROTONIX) ONE (19:10)
[2022-03-17] MEDS: DOCUSATE SODIUM 100 MG CAPSULE PO SCH (21:00)
[2022-03-17] MEDS: LORazepam 2 MG/ML VIAL IVP PRN (22:27)
[2022-03-18] MEDS: NACL 0.9% 1,000 ML IV SCH ×2 (04:43→15:54)
[2022-03-18 06:27] LABS: BASOPHILS % (AUTO) 0.5 % (0.0-2.0); EOSINOPHILS # (AUTO) 0.1 K/uL (0.0-0.4); EOSINOPHILS % (AUTO) 1.9 % (0.0-4.0); HEMATOCRIT 42.3 % (36-48); HEMOGLOBIN 14.1 g/dL (12.0-16.0); LYMPHOCYTES # (AUTO) 1.4 K/uL (1.0-5.5); LYMPHOCYTES % (AUTO) 25.4 % (20.5-51.5); MEAN CORPUSCULAR HEMOGLOBIN 29 pg (27-31); MEAN CORPUSCULAR HGB CONC 33 % (32-36); MEAN CORPUSCULAR VOLUME 86 fL (79.0-98.0); MONOCYTES # (AUTO) 0.8 K/uL (0.0-1.0); MONOCYTES % (AUTO) 14.2 % (1.7-9.3); NEUTROPHILS # (AUTO) 3.2 K/uL (1.8-7.7); PLATELET COUNT (AUTO) 139 K/uL (130-430); RED BLOOD CELL COUNT(AUTO) 4.95 MIL/uL (4.2-6.2); RED CELL DISTRIBUTION WIDTH 15.6 % (9.0-15.0); WHITE BLOOD COUNT (AUTO) 5.5 K/uL (4.8-10.8)
[2022-03-18 07:10] LABS: CALCIUM 8.5 mg/dL (8.4-11.0); CREATININE 0.74 mg/dL (0.55-1.30)
[2022-03-18] MEDS: SERTRALINE HCL 50 MG TABLET PO SCH (08:36)
[2022-03-18] MEDS: DOCUSATE SODIUM 100 MG CAPSULE PO SCH ×2 (08:37→21:00)
[2022-03-18 13:50] VITALS: BP_SYST 106
[2022-03-18 14:03] VITALS: BP_SYST 106
[2022-03-18 16:00] VITALS: BP_SYST 117
[2022-03-18 20:00] VITALS: BP_SYST 110
[2022-03-19] VITALS: BP_SYST 120
[2022-03-19] MEDS: NACL 0.9% 1,000 ML IV SCH (06:40)
[2022-03-19 06:47] LABS: BASOPHILS % (AUTO) 0.4 % (0.0-2.0); EOSINOPHILS # (AUTO) 0.1 K/uL (0.0-0.4); EOSINOPHILS % (AUTO) 2.2 % (0.0-4.0); HEMATOCRIT 39.7 % (36-48); HEMOGLOBIN 13.5 g/dL (12.0-16.0); LYMPHOCYTES # (AUTO) 1.6 K/uL (1.0-5.5); LYMPHOCYTES % (AUTO) 30.2 % (20.5-51.5); MEAN CORPUSCULAR HEMOGLOBIN 29 pg (27-31); MEAN CORPUSCULAR HGB CONC 34 % (32-36); MEAN CORPUSCULAR VOLUME 85 fL (79.0-98.0); MONOCYTES # (AUTO) 0.7 K/uL (0.0-1.0); MONOCYTES % (AUTO) 13.3 % (1.7-9.3); NEUTROPHILS # (AUTO) 2.8 K/uL (1.8-7.7); NEUTROPHILS % (AUTO) 53.9 % (40.0-70.0); PLATELET COUNT (AUTO) 154 K/uL (130-430); RED BLOOD CELL COUNT(AUTO) 4.67 MIL/uL (4.2-6.2); RED CELL DISTRIBUTION WIDTH 15.4 % (9.0-15.0); WHITE BLOOD COUNT (AUTO) 5.1 K/uL (4.8-10.8)
[2022-03-19 08:01] LABS: CALCIUM 8.2 mg/dL (8.4-11.0); CREATININE 0.6 mg/dL (0.55-1.30)
[2022-03-19 08:10] VITALS: BP_SYST 121
[2022-03-19] MEDS: DOCUSATE SODIUM 100 MG CAPSULE PO SCH ×2 (09:00→21:00)
[2022-03-19] MEDS: SERTRALINE HCL 50 MG TABLET PO SCH (09:00)
[2022-03-19] MEDS ORDERED: POTASSIUM CHLORIDE 40 MEQ, LIDOCAINE JECT 2% PF 100 MG 50 MG in NS 250 ML IV ONE (10:30)
[2022-03-19] MEDS ORDERED: SIMETHICONE 80 MG TAB.CHEW PO ONE (12:30)
[2022-03-19] MEDS: D5/0.45 NS 1,000 ML IV SCH ×2 (13:12→21:45)
[2022-03-19 16:00] VITALS: BP_SYST 118
[2022-03-19] MEDS: ERYTHROMYCIN BASE 500 MG TABLET PO SCH ×2 (17:14→22:06)
[2022-03-19 20:00] VITALS: BP_SYST 108
[2022-03-20 00:45] VITALS: BP_SYST 114
[2022-03-20] MEDS: D5/0.45 NS 1,000 ML IV SCH ×2 (06:34→21:53)
[2022-03-20] MEDS: ERYTHROMYCIN BASE 500 MG TABLET PO SCH ×4 (06:34→21:51)
[2022-03-20 06:53] LABS: BASOPHILS % (AUTO) 0.4 % (0.0-2.0); EOSINOPHILS # (AUTO) 0.1 K/uL (0.0-0.4); EOSINOPHILS % (AUTO) 2.8 % (0.0-4.0); HEMATOCRIT 40.4 % (36-48); HEMOGLOBIN 13.6 g/dL (12.0-16.0); LYMPHOCYTES # (AUTO) 1.4 K/uL (1.0-5.5); LYMPHOCYTES % (AUTO) 28.1 % (20.5-51.5); MEAN CORPUSCULAR HEMOGLOBIN 28 pg (27-31); MEAN CORPUSCULAR HGB CONC 34 % (32-36); MEAN CORPUSCULAR VOLUME 84 fL (79.0-98.0); MONOCYTES # (AUTO) 0.7 K/uL (0.0-1.0); MONOCYTES % (AUTO) 14.1 % (1.7-9.3); NEUTROPHILS # (AUTO) 2.7 K/uL (1.8-7.7); NEUTROPHILS % (AUTO) 54.6 % (40.0-70.0); PLATELET COUNT (AUTO) 138 K/uL (130-430); RED BLOOD CELL COUNT(AUTO) 4.79 MIL/uL (4.2-6.2); RED CELL DISTRIBUTION WIDTH 15.6 % (9.0-15.0)
[2022-03-20 07:03] LABS: CALCIUM 8.3 mg/dL (8.4-11.0); CREATININE 0.6 mg/dL (0.55-1.30)
[2022-03-20] MEDS: DOCUSATE SODIUM 100 MG CAPSULE PO SCH ×2 (09:33→21:51)
[2022-03-20] MEDS: SERTRALINE HCL 50 MG TABLET PO SCH (09:33)
[2022-03-20 11:34] VITALS: BP_SYST 127
[2022-03-20 15:34] VITALS: BP_SYST 121
[2022-03-20] MEDS: LORazepam 2 MG/ML VIAL IVP PRN (18:01)
[2022-03-20 20:00] VITALS: BP_SYST 127
[2022-03-20] MEDS: LOPERAMIDE HCL 2 MG CAPSULE PO PRN (23:38)
[2022-03-21] MEDS: LOPERAMIDE HCL 2 MG CAPSULE PO PRN (05:20)
[2022-03-21 07:17] LABS: BASOPHILS % (AUTO) 0.5 % (0.0-2.0); EOSINOPHILS # (AUTO) 0.2 K/uL (0.0-0.4); EOSINOPHILS % (AUTO) 3.7 % (0.0-4.0); HEMATOCRIT 37.6 % (36-48); LYMPHOCYTES # (AUTO) 1.3 K/uL (1.0-5.5); LYMPHOCYTES % (AUTO) 27.2 % (20.5-51.5); MEAN CORPUSCULAR HEMOGLOBIN 29 pg (27-31); MEAN CORPUSCULAR HGB CONC 35 % (32-36); MEAN CORPUSCULAR VOLUME 83 fL (79.0-98.0); MONOCYTES # (AUTO) 0.6 K/uL (0.0-1.0); MONOCYTES % (AUTO) 12.8 % (1.7-9.3); NEUTROPHILS # (AUTO) 2.7 K/uL (1.8-7.7); NEUTROPHILS % (AUTO) 55.8 % (40.0-70.0); PLATELET COUNT (AUTO) 131 K/uL (130-430); RED BLOOD CELL COUNT(AUTO) 4.51 MIL/uL (4.2-6.2); RED CELL DISTRIBUTION WIDTH 15.4 % (9.0-15.0); WHITE BLOOD COUNT (AUTO) 4.8 K/uL (4.8-10.8)
[2022-03-21 07:18] LABS: CREATININE 0.55 mg/dL (0.55-1.30)
[2022-03-21] MEDS: ERYTHROMYCIN BASE 500 MG TABLET PO SCH (07:19)
[2022-03-21 08:30] VITALS: BP_SYST 117
[2022-03-21] MEDS ORDERED: METOCLOPRAMIDE HCL 10 MG/2 ML VIAL IVP ONE (10:00)
[2022-03-21] MEDS: D5/0.45 NS 1,000 ML IV SCH ×2 (11:15→23:45)
[2022-03-21 11:34] VITALS: BP_SYST 128
[2022-03-21] MEDS: DOCUSATE SODIUM 100 MG CAPSULE PO SCH ×2 (11:50→21:24)
[2022-03-21] MEDS: SERTRALINE HCL 50 MG TABLET PO SCH (11:50)
[2022-03-21] MEDS: METOCLOPRAMIDE HCL 10 MG/2 ML VIAL IVP SCH ×2 (15:07→21:55)
[2022-03-21] MEDS: ERYTHROMYCIN LACTOBIONATE 500 MG in NS 50 ML IV SCH ×2 (15:09→21:55)
[2022-03-21 15:24] VITALS: BP_SYST 114
[2022-03-21 21:20] VITALS: BP_SYST 107
[2022-03-21] MEDS: traZODone HCL 50 MG TABLET (DESYREL) PO PRN (21:20)
[2022-03-22 00:36] VITALS: BP_SYST 103
[2022-03-22] MEDS: METOCLOPRAMIDE HCL 10 MG/2 ML VIAL IVP SCH ×3 (06:00→21:21)
[2022-03-22] MEDS: ERYTHROMYCIN LACTOBIONATE 500 MG in NS 50 ML IV SCH ×3 (06:00→21:21)
[2022-03-22 06:30] LABS: BASOPHILS % (AUTO) 0.5 % (0.0-2.0); EOSINOPHILS # (AUTO) 0.1 K/uL (0.0-0.4); EOSINOPHILS % (AUTO) 4.6 % (0.0-4.0); HEMATOCRIT 34.7 % (36-48); HEMOGLOBIN 11.9 g/dL (12.0-16.0); LYMPHOCYTES # (AUTO) 1.3 K/uL (1.0-5.5); LYMPHOCYTES % (AUTO) 43.2 % (20.5-51.5); MEAN CORPUSCULAR HEMOGLOBIN 29 pg (27-31); MEAN CORPUSCULAR HGB CONC 34 % (32-36); MEAN CORPUSCULAR VOLUME 84 fL (79.0-98.0); MONOCYTES # (AUTO) 0.3 K/uL (0.0-1.0); MONOCYTES % (AUTO) 10.5 % (1.7-9.3); NEUTROPHILS # (AUTO) 1.3 K/uL (1.8-7.7); NEUTROPHILS % (AUTO) 41.2 % (40.0-70.0); PLATELET COUNT (AUTO) 102 K/uL (130-430); RED BLOOD CELL COUNT(AUTO) 4.14 MIL/uL (4.2-6.2); RED CELL DISTRIBUTION WIDTH 15.5 % (9.0-15.0); WHITE BLOOD COUNT (AUTO) 3.1 K/uL (4.8-10.8)
[2022-03-22 06:41] LABS: CALCIUM 7.5 mg/dL (8.4-11.0); CREATININE 0.54 mg/dL (0.55-1.30)
[2022-03-22 08:00] VITALS: BP_SYST 105
[2022-03-22] MEDS: DOCUSATE SODIUM 100 MG CAPSULE PO SCH ×2 (09:03→21:00)
[2022-03-22] MEDS: SERTRALINE HCL 50 MG TABLET PO SCH (09:03)
[2022-03-22 11:28] VITALS: BP_SYST 105
[2022-03-22] MEDS: D5/0.45 NS 1,000 ML IV SCH (12:57)
[2022-03-22 13:20] LABS: BILIRUBIN,URINE NEGATIVE (NEGATIVE); BLOOD, URINE NEGATIVE (NEGATIVE); CLARITY/URINE CLEAR (CLEAR); COLOR,URINE YELLOW (YELLOW); GLUCOSE,URINE NEGATIVE (NEGATIVE); KETONES,URINE NEGATIVE (NEGATIVE); LEUKOCYTE ESTERASE ,URINE NEGATIVE (NEGATIVE); NITRITE, URINE NEGATIVE (NEGATIVE); PROTEIN URINE NEGATIVE (NEGATIVE)
[2022-03-22 15:27] VITALS: BP_SYST 92
[2022-03-22 19:20] VITALS: BP_SYST 103
[2022-03-23 00:26] VITALS: BP_SYST 109
[2022-03-23] MEDS: LOPERAMIDE HCL 2 MG CAPSULE PO PRN (01:49)
[2022-03-23] MEDS: METOCLOPRAMIDE HCL 10 MG/2 ML VIAL IVP SCH ×2 (06:01→14:00)
[2022-03-23] MEDS: ERYTHROMYCIN LACTOBIONATE 500 MG in NS 50 ML IV SCH ×2 (06:02→14:00)
[2022-03-23 08:55] VITALS: BP_SYST 127
[2022-03-23] MEDS: DOCUSATE SODIUM 100 MG CAPSULE PO SCH ×2 (08:55→09:00)
[2022-03-23] MEDS: SERTRALINE HCL 50 MG TABLET PO SCH ×2 (08:56→08:59)
[2022-03-23 11:24] VITALS: BP_SYST 127
[2022-03-23] MEDS: D5/0.45 NS 1,000 ML IV SCH (13:15)
[2022-03-23 15:27] VITALS: BP_SYST 137
[2022-03-23] MEDS ORDERED: ONDANSETRON HCL 4 MG/2 ML VIAL IVP PRN (16:45)
[2022-03-23] MEDS: INSULIN LISPRO SLIDING SCALE 100 UNITS/ML, 3 ML VIAL (humaLOG) SUBCUT PRN (19:25)
[2022-03-23 21:30] VITALS: BP_SYST 109
[2022-03-24] MEDS: DOCUSATE SODIUM 100 MG CAPSULE PO SCH ×3 (00:15→21:40)
[2022-03-24] MEDS: METOCLOPRAMIDE HCL 10 MG/2 ML VIAL IVP SCH ×4 (00:15→21:39)
[2022-03-24] MEDS: traZODone HCL 50 MG TABLET (DESYREL) PO PRN ×2 (00:15→22:39)
[2022-03-24] MEDS: ERYTHROMYCIN LACTOBIONATE 500 MG in NS 50 ML IV SCH ×4 (00:16→21:41)
[2022-03-24] MEDS: D5/0.45 NS 1,000 ML IV SCH ×2 (00:23→16:51)
[2022-03-24] MEDS: SERTRALINE HCL 50 MG TABLET PO SCH (08:53)
[2022-03-24 11:40] VITALS: BP_SYST 91
[2022-03-24 15:12] VITALS: BP_SYST 94
[2022-03-24 20:30] VITALS: BP_SYST 99
[2022-03-24] MEDS ORDERED: traZODone HCL 50 MG TABLET (DESYREL) ONE (22:36)
[2022-03-25] MEDS: D5/0.45 NS 1,000 ML IV SCH ×2 (02:45→15:15)
[2022-03-25] MEDS: ERYTHROMYCIN LACTOBIONATE 500 MG in NS 50 ML IV SCH ×3 (05:57→21:36)
[2022-03-25] MEDS: METOCLOPRAMIDE HCL 10 MG/2 ML VIAL IVP SCH ×3 (05:58→21:40)
[2022-03-25 08:01] VITALS: BP_SYST 119
[2022-03-25] MEDS: SERTRALINE HCL 50 MG TABLET PO SCH (08:44)
[2022-03-25] MEDS: DOCUSATE SODIUM 100 MG CAPSULE PO SCH ×2 (08:45→21:35)
[2022-03-25] MEDS: INSULIN LISPRO SLIDING SCALE 100 UNITS/ML, 3 ML VIAL (humaLOG) SUBCUT PRN (11:55)
[2022-03-25 12:01] VITALS: BP_SYST 110
[2022-03-25 20:00] VITALS: BP_SYST 94
[2022-03-26 00:45] VITALS: BP_SYST 97
[2022-03-26] MEDS: D5/0.45 NS 1,000 ML IV SCH (05:00)
[2022-03-26] MEDS: METOCLOPRAMIDE HCL 10 MG/2 ML VIAL IVP SCH (06:32)
[2022-03-26 08:00] VITALS: BP_SYST 100
[2022-03-26] MEDS: DOCUSATE SODIUM 100 MG CAPSULE PO SCH (09:00)
[2022-03-26 09:29] LABS: EOSINOPHILS # (AUTO) 0.1 K/uL (0.0-0.4); EOSINOPHILS % (AUTO) 2.9 % (0.0-4.0); HEMOGLOBIN 12.5 g/dL (12.0-16.0); LYMPHOCYTES # (AUTO) 1.2 K/uL (1.0-5.5); LYMPHOCYTES % (AUTO) 32.7 % (20.5-51.5); MEAN CORPUSCULAR HEMOGLOBIN 29 pg (27-31); MEAN CORPUSCULAR HGB CONC 34 % (32-36); MEAN CORPUSCULAR VOLUME 85 fL (79.0-98.0); MONOCYTES # (AUTO) 0.4 K/uL (0.0-1.0); MONOCYTES % (AUTO) 12.2 % (1.7-9.3); NEUTROPHILS # (AUTO) 1.8 K/uL (1.8-7.7); NEUTROPHILS % (AUTO) 51.2 % (40.0-70.0); PLATELET COUNT (AUTO) 139 K/uL (130-430); RED BLOOD CELL COUNT(AUTO) 4.33 MIL/uL (4.2-6.2); RED CELL DISTRIBUTION WIDTH 16.4 % (9.0-15.0); WHITE BLOOD COUNT (AUTO) 3.5 K/uL (4.8-10.8)
[2022-03-26 09:34] VITALS: BP_SYST 100
[2022-03-26 09:49] LABS: CALCIUM 8.4 mg/dL (8.4-11.0); CREATININE 0.71 mg/dL (0.55-1.30)
[2022-03-26] MEDS: SERTRALINE HCL 50 MG TABLET PO SCH (09:50)
[2022-03-26 12:00] VITALS: BP_SYST 99
== END 2022-03-26 14:10 | disposition home or self-care (01) | DRG 388 ==
LOC: SED 08:26 → SMU 13:53
PROVIDERS: ADMIT Family Medicine; ATTEND Family Medicine
DX: K56.600 Partial intestinal obstruction, unspecified as to cause (principal); N17.0 Acute kidney failure with tubular necrosis; E44.1 Mild protein-calorie malnutrition; K56.7 Ileus, unspecified; E11.43 Type 2 diabetes mellitus with diabetic autonomic (poly)neuropathy; E87.6 Hypokalemia; Z96.649 Presence of unspecified artificial hip joint; F32.A Depression, unspecified; M19.90 Unspecified osteoarthritis, unspecified site; F25.9 Schizoaffective disorder, unspecified; K31.84 Gastroparesis; Z20.822 Contact with and (suspected) exposure to COVID-19; Z88.6 Allergy status to analgesic agent; Z88.1 Allergy status to other antibiotic agents; Z88.8 Allergy status to other drugs, medicaments and biological substances; Z79.899 Other long term (current) drug therapy
CPT/HCPCS: 36415; 71045; 73502; 74018; 74021; 74250-TC; 78264-TC; 80048; 80053; 81003; 82962; 83036; 83690; 83735; 85025; 87081; 96361; 96374; 96375; 97116-GP; 99285; A9541; C9113; J0780; J1364; J1956; J2060; J2270; J2405; J2765; J3475; J3480; J7030; J7050; Q9963; Q9964

== ENCOUNTER 2023-08-05 18:01 | Emergency (ER) | payer MEDICARE, MEDICAID ==
[~2023-08-05] VITALS: Ht 167.6 cm; Wt 70.3 kg
[2023-08-05 18:02] VITALS: BP_SYST 138; PULSE 85; RESP 18; TEMP 97.1; O2SAT 100
[2023-08-05] MEDS: LORazepam 2 MG/ML VIAL IVP ONE (18:48)
[2023-08-05] MEDS: ONDANSETRON HCL 4 MG/2 ML VIAL IVP ONE (18:48)
[2023-08-06 00:30] VITALS: BP_SYST 111; PULSE 71; RESP 23; TEMP 97.5; O2SAT 98
== END 2023-08-06 00:30 | disposition home or self-care (01) ==
LOC: SED 18:01
DX: R45.1 Restlessness and agitation (principal); R41.82 Altered mental status, unspecified; I10 Essential (primary) hypertension; Z88.1 Allergy status to other antibiotic agents; Z88.6 Allergy status to analgesic agent; Z86.59 Personal history of other mental and behavioral disorders
CPT/HCPCS: 99285; 96374; 70450; 71045; 93005; 96372; J2060; J2405